=== PATIENT | female | born 1945 | race Caucasian/White ===

== ENCOUNTER → 2016-07-09 | Outpatient (CLI) | payer OTHER, BC ==
[~2016-07-09] MED LIST: AMR2 PO; CRS20 PO; EXFORGE HCT PO; GLCSR500 PO; LPRUNK PO; OXYC-57 PO; SYN125 PO
[2016-07-09 13:37] LABS: BLOOD UREA NITROGEN 19 mg/dl (7-18); BUN/CREATININE RATIO 28.8 (10-20); CALCIUM 9.3 mg/dl (8.5-10.1); CARBON DIOXIDE 24 mmol/L (21-32); CHLORIDE 105 mmol/L (98-107); CREATININE 0.67 mg/dl (0.60-1.20); GLUCOSE 142 mg/dl (70-99); POTASSIUM 3.9 mmol/L (3.5-5.1); SODIUM 141 mmol/L (136-145)
[2016-07-09 13:46] LABS: ESTIMATED AVERAGE GLUCOSE 166 mg/dl; HA1C FLAG Normal (Normal)
== END | disposition home or self-care (01) ==
LOC: C.LABMFLN 09:03
PROVIDERS: ATTEND Family Medicine
DX: E11.9 Type 2 diabetes mellitus without complications (principal)

== ENCOUNTER → 2016-12-10 | Outpatient (CLI) | payer OTHER, BC ==
[2016-12-10 13:32] LABS: ESTIMATED AVERAGE GLUCOSE 180 mg/dl; HA1C FLAG Normal (Normal)
[2016-12-10 13:35] LABS: ALT/SGPT 35 U/L (12-78); BLOOD UREA NITROGEN 18 mg/dl (7-18); BUN/CREATININE RATIO 26.7 (10-20); CALCIUM 9.8 mg/dl (8.5-10.1); CARBON DIOXIDE 24 mmol/L (21-32); CHLORIDE 106 mmol/L (98-107); CHOLESTEROL 206 mg/dl (0-200); CREATININE 0.66 mg/dl (0.60-1.20); GLUCOSE 181 mg/dl (70-99); POTASSIUM 3.8 mmol/L (3.5-5.1); SODIUM 140 mmol/L (136-145)
[2016-12-10 13:45] LABS: ALB/GLOB RATIO 1.1 (0.9-2); ALKALINE PHOSPHATASE 76 U/L (45-117); AST/SGOT 19 U/L (15-37); CHOLESTEROL/HDL RATIO 5.2; HDL CHOLESTEROL 40 mg/dl; LDL CHOLESTEROL CALCULATED 107 mg/dl; TRIGLYCERIDES 293 mg/dl (0-150); VERY LOW DENSITY LIPOPROT CALC 59 mg/dl
[2016-12-10 13:45] LABS: RATIO 39.5 mcg/mg (0-30.0)
== END | disposition home or self-care (01) ==
LOC: C.LABMFLN 08:11
PROVIDERS: ATTEND Family Medicine
DX: I10 Essential (primary) hypertension (principal); E55.9 Vitamin D deficiency, unspecified; E78.00 Pure hypercholesterolemia, unspecified; E11.9 Type 2 diabetes mellitus without complications; E03.9 Hypothyroidism, unspecified

== ENCOUNTER → 2017-04-28 | Outpatient (CLI) | payer OTHER, BC ==
[2017-04-28 13:20] LABS: ESTIMATED AVERAGE GLUCOSE 160 mg/dl; HA1C FLAG Normal (Normal)
[2017-04-28 13:33] LABS: ALT/SGPT 32 U/L (12-78); AST/SGOT 20 U/L (15-37); BLOOD UREA NITROGEN 22 mg/dl (7-18); BUN/CREATININE RATIO 34.5 (10-20); CALCIUM 9.1 mg/dl (8.5-10.1); CARBON DIOXIDE 24 mmol/L (21-32); CHLORIDE 100 mmol/L (98-107); CREATININE 0.65 mg/dl (0.60-1.20); GLUCOSE 161 mg/dl (70-99); POTASSIUM 3.6 mmol/L (3.5-5.1); SODIUM 134 mmol/L (136-145)
[2017-04-28 13:36] LABS: ALKALINE PHOSPHATASE 67 U/L (45-117); CHOLESTEROL 182 mg/dl (0-200); CHOLESTEROL/HDL RATIO 3.9; HDL CHOLESTEROL 47 mg/dl; LDL CHOLESTEROL CALCULATED 85 mg/dl; TRIGLYCERIDES 250 mg/dl (0-150); VERY LOW DENSITY LIPOPROT CALC 50 mg/dl
== END | disposition home or self-care (01) ==
LOC: C.LABMFLN 08:55
PROVIDERS: ATTEND Family Medicine
DX: E78.00 Pure hypercholesterolemia, unspecified (principal); E55.9 Vitamin D deficiency, unspecified

== ENCOUNTER → 2017-09-01 | Outpatient (CLI) | payer OTHER, BC ==
[2017-09-01 13:49] LABS: HEMOGLOBIN A1C 8.1 % (4.5-5.6)
[2017-09-01 13:54] LABS: ALBUMIN 3.7 gm/dl (3.4-5.0); ALT/SGPT 35 U/L (12-78); BLOOD UREA NITROGEN 12 mg/dl (7-18); CALCIUM 9.1 mg/dl (8.5-10.1); CARBON DIOXIDE 24 mmol/L (21-32); CREATININE 0.74 mg/dl (0.60-1.20); GLUCOSE 224 mg/dl (70-99); POTASSIUM 3.6 mmol/L (3.5-5.1); SODIUM 138 mmol/L (136-145)
[2017-09-01 14:05] LABS: ALKALINE PHOSPHATASE 81 U/L (45-117); AST/SGOT 20 U/L (15-37); CHOLESTEROL 180 mg/dl (0-200); LDL CHOLESTEROL CALCULATED 87 mg/dl; TOTAL PROTEIN 7.5 gm/dl (6.4-8.2)
== END | disposition home or self-care (01) ==
LOC: C.LABMFLN 08:29
PROVIDERS: ATTEND Family Medicine
DX: I10 Essential (primary) hypertension (principal); E03.9 Hypothyroidism, unspecified; E11.9 Type 2 diabetes mellitus without complications; E78.00 Pure hypercholesterolemia, unspecified

== ENCOUNTER → 2018-01-06 | Outpatient (CLI) | payer OTHER, BC ==
[2018-01-06 13:43] LABS: HEMOGLOBIN A1C 7.4 % (4.5-5.6)
[2018-01-06 14:15] LABS: ALBUMIN 3.7 gm/dl (3.4-5.0); ALKALINE PHOSPHATASE 72 U/L (45-117); ALT/SGPT 32 U/L (12-78); AST/SGOT 21 U/L (15-37); BLOOD UREA NITROGEN 17 mg/dl (7-18); CALCIUM 9.2 mg/dl (8.5-10.1); CARBON DIOXIDE 23 mmol/L (21-32); CHOLESTEROL 109 mg/dl (0-200); CREATININE 0.67 mg/dl (0.60-1.20); GLUCOSE 172 mg/dl (70-99); LDL CHOLESTEROL CALCULATED 37 mg/dl; POTASSIUM 3.8 mmol/L (3.5-5.1); SODIUM 136 mmol/L (136-145); TOTAL PROTEIN 7.2 gm/dl (6.4-8.2)
== END | disposition home or self-care (01) ==
LOC: C.LABMFLN 08:40
PROVIDERS: ATTEND Family Medicine
DX: I10 Essential (primary) hypertension (principal); E11.9 Type 2 diabetes mellitus without complications; R07.89 Other chest pain; E55.9 Vitamin D deficiency, unspecified

== ENCOUNTER → 2018-01-09 | Outpatient (CLI) | payer OTHER, BC | END | disposition home or self-care (01) | LOC: C.LABMFLN 10:26 | PROVIDERS: ATTEND Family Medicine | DX: M79.674 Pain in right toe(s) (principal) ==

== ENCOUNTER 2018-08-24 06:54 | Inpatient (IN) ==
--- NOTE | 2018-08-14 15:31 | PAT Medication Instructions ---
Medication Instructions Date of Service August 14, 2018 Home Medications mspruztmqd-sbtumccnm-zijyzmoca 1 tab PO QAM cholecalciferol (vitamin D3) 1,000 unit PO DAILY glimepiride 4 mg PO BID latanoprost 1 drp OPHTHALMIC (EYE) QPM levothyroxine 112 mcg PO QAM metformin 1,000 mg PO BID metoprolol tartrate 75 mg PO BID rosuvastatin [Crestor] 20 mg PO HS sitagliptin-metformin [Mayumet] 1 tab PO BID DO NOT take the morning of surgery exkirafsum-qyunmjnby-vjtpjzdzl 1 tab PO QAM cholecalciferol (vitamin D3) 1,000 unit PO DAILY glimepiride 4 mg PO BID metformin 1,000 mg PO BID sitagliptin-metformin [Mayumet] 1 tab PO BID Take morning of surgery With a small sip of water, OTHERWISE NOTHING TO EAT OR DRINK AFTER MIDNIGHT: levothyroxine 112 mcg PO QAM metoprolol tartrate 75 mg PO BID Take evening before surgery glimepiride 4 mg PO BID latanoprost 1 drp OPHTHALMIC (EYE) QPM metformin 1,000 mg PO BID metoprolol tartrate 75 mg PO BID rosuvastatin [Crestor] 20 mg PO HS sitagliptin-metformin [Mayumet] 1 tab PO BID Other Notes If you have any questions please call us at [phone] or [phone] or [phone] or [phone]
--- NOTE | 2018-08-17 11:12 | Anesthesiology Consultation ---
Date of Service August 17, 2018 Assessment & Plan (1) Encounter for pre-operative examination: - Check BSG AM DOS Chart Review Chart Review: Acceptable Risk for Surgery and Patient seen in Pre Admission Testing Teaching & Discussion Pre-Anesthesia Teaching/Discussion Notes: Instructed NPO after midnight before surgery,except medications with 15 cc of water. Medication instructions provided according to the PAT guidelines. History Surgery Operation Date: 08/24/18 08:15 Proposed Procedures p Right Hand Assisted Laparoscopic Nephrectomy - Larry Mei MD Height/Weight Height: 5 ft 1.5 in Weight: 78.3 kg Allergies Allergy/AdvReac Type Severity Reaction Status Date / Time No Known Allergies Allergy Verified 08/14/18 13:39 Medications Home Medications Medication Instructions Recorded Confirmed Last Taken zpouwhpfrw-xuolcgiip-uvxrgqpcw 1 tab PO QAM 08/14/18 08/14/18 Unknown cholecalciferol (vitamin D3) 1,000 unit PO DAILY 08/14/18 08/14/18 Unknown [Vitamin D3] glimepiride 4 mg PO BID 08/14/18 08/14/18 Unknown latanoprost 1 drp OPHTHALMIC (EYE) QPM 08/14/18 08/14/18 Unknown levothyroxine 112 mcg PO QAM 08/14/18 08/14/18 Unknown metformin 1,000 mg PO BID 08/14/18 08/14/18 Unknown metoprolol tartrate 75 mg PO BID 08/14/18 08/14/18 Unknown rosuvastatin [Crestor] 20 mg PO HS 08/14/18 08/14/18 Unknown sitagliptin-metformin [Janumet] 1 tab PO BID 08/14/18 08/14/18 Unknown omeprazole 1 cap PO DAILY 08/17/18 08/17/18 Unknown Past Medical History Medical History Acid reflux CONTROLLED Anemia CHRONIC; HGB 10-11 RANGE PER CHART REVIEW Cancer RENAL (NEW DIAGNOSIS) WITH ?METS Diabetes mellitus, type 2 NIDDM Glaucoma Gout Hypertension Hypothyroidism Obesity Past Family History Family History Mother Family history of diabetes mellitus Past Surgical History Surgical History History of arthroscopy RIGHT KNEE History of colonoscopy History of open reduction and internal fixation (ORIF) procedure B/L ANKLE Past Anesthesia History No Hx of Anesthesia Complications and No Family Hx of Anesthesia Complications History of PONV No Motion Sickness Screening History of Motion Sickness: No Social History Smoking Status: Former smoker Smoking cigarettes per day: QUIT 30 YEARS AGO; HX <1/4 PPD X 15 YEARS Do You Dip or Chew Tobacco: No Hx Alcohol Use: Yes Alcohol type: beer, wine and hard liquor alcohol intake frequency: a few times a month Hx Substance Use: No substance use type: does not use Exercise / Class Metabolic Activity II 4-5 Yardwork/Stairs/Walk up hill Review of Systems Patient denies chest pain, shortness of breath, dyspnea on exertion, cough, wheezing, palpitations. Physical Exam Vital Signs VITALS B 164/91P P 67 TEMP 98.3 SP02 97%RA RESP 18 PHYSICAL Full neck and c-spine range of motion. Full TMJ range of motion. TMD 3 finger breaths Mallampati Score 2 Dentition: intact Lungs: clear throughout to auscultation Cardiac: regular rate and rhythm, no murmurs noted Spine: normal Carotid arteries: negative bruit Extremities: no edema Testing Electrocardiogram Date: 07/31/18 SR at 61bpm. Stress Test Date: 06/17/17 Type: exercise Negative exercise stress ECHO/EKG for ischemia at 93% MPHR. Fair exercise tolerative. EF 60-65%. Mild cLVH. Type I DD. AV sclerosis. Trace to mild AI. Other Testing Chest CT= 08/07/18= The central airways are patent. No pleural effusions. No pneumothorax. The lungs are clear. No suspicious pulmonary nodules. There is a 2.3 cm lytic lesion occupying the majority of the T6 vertebral body. This does not extend through the posterior cortex. This likely extends along the right anterior paravertebral location demonstrated by small soft tissue rind measuring 4 mm in thickness. No mediastinal or hilar lymphadenopathy. The heart is borderline enlarged. Laboratory Results Blood Type O Positive 08/17/18 11:29 Antibody Screen NEGATIVE 08/17/18 11:29 Urine Color Yellow 08/17/18 Unknown Urine Appearance Clear (Clear) 08/17/18 Unknown Urine pH 5.5 (4.5-7.5) 08/17/18 Unknown Ur Specific [place] 1.021 (1.000-1.030) 08/17/18 Unknown Urine Protein Negative (Negative) 08/17/18 Unknown Urine Glucose (UA) 1+ (Negative) H 08/17/18 Unknown Urine Ketones Trace (Negative) H 08/17/18 Unknown Urine Nitrite Negative (Negative) 08/17/18 Unknown Ur Leukocyte Esterase Negative (Negative) 08/17/18 Unknown 08/13/18 WBC 8.02 H/H 11.4/35.5 PLATELETS 315 SODIUM 137 POTASSIUM 3.7 CHLORIDE 103 CO2 25 BUN 22 CREATININE 0.87 GLUCOSE 109 PT 10.4 PTT 24.5 INR 1.0 07/13/18 HGBA1C 7.9% (surgeon made aware)
[2018-08-17 13:03] LABS: Appearance Urine Clear (Clear); Bilirubin Urine Negative (Negative); Blood Urine Negative (Negative); Color Urine Yellow; Glucose Urine UA 1+ (Negative); Ketones Urine Trace (Negative); Leukocyte Esterase Urine Negative (Negative); Nitrite Urine Negative (Negative); Protein Urine Negative (Negative); Specific Gravity Urine 1.021 (1.000-1.030); Urobilinogen Urine Negative (Negative); pH Urine 5.5 (4.5-7.5)
[~2018-08-24 06:54] MED LIST changes: +ACETAMINOPHEN 1,000 MG/100 ML VIAL IV SCH; -AMR2 PO; +CEFAZOLIN 2000MG 2,000 MG/15 ML SYR IV SCH; -CRS20 PO; -EXFORGE HCT PO; -GLCSR500 PO; -LPRUNK PO; +LR 15ML/HR IV SCH; -OXYC-57 PO; -SYN125 PO
[2018-08-24] MEDS ORDERED: ONDANSETRON INJ 2 MG/ML 2 ML VIAL IV PRN (07:11)
[2018-08-24] MEDS ORDERED: PHENYLEPHRINE 100MCG/ML 5ML SYR IV PRN (07:11)
[2018-08-24] MEDS ORDERED: ATROPINE SULFATE 0.1 MG/ML 10ML SYR IV PRN (07:11)
[2018-08-24] MEDS ORDERED: fentaNYL citrate 100 MCG/2 ML VIAL IV PRN (07:11)
[2018-08-24] MEDS ORDERED: HYDROmorphone INJ 1 MG/ML SYRINGE IV PRN ×2 (07:11→13:08)
[2018-08-24] MEDS ORDERED: ePHEDrine sulfate 50 MG/ML AMP IV PRN (07:11)
[2018-08-24] MEDS ORDERED: MIDAZOLAM HCL 1 MG/ML 2ML VIAL ONE (08:04)
[2018-08-24] MEDS ORDERED: fentaNYL citrate 100 MCG/2 ML VIAL ONE (08:05)
[2018-08-24] MEDS ORDERED: BUPIVACAINE 0.5 % 5 MG/1 ML MPF 30ML VIAL ONE (08:16)
--- NOTE | 2018-08-24 08:28 | History & Physical Bridge Note ---
Date of Service August 24, 2018 History & Physical Bridge Note I have examined the patient, reviewed the History & Physical and in the interval since the performance of the History & Physical I have noted the following changes of clinical significance: no changes noted
[2018-08-24] MEDS ORDERED: HYDROmorphone INJ 2 MG/ML SYR/VIAL ONE (09:15)
[2018-08-24] MEDS ORDERED: GLYCOPYRROLATE 0.2 MG/ML VIAL ONE (09:29)
[2018-08-24] MEDS ORDERED: ONDANSETRON INJ 2 MG/ML 2 ML VIAL ONE (09:29)
[2018-08-24] MEDS ORDERED: PHENYLEPHRINE 100MCG/ML 5ML SYR ONE (09:29)
[2018-08-24] MEDS ORDERED: ePHEDrine sulfate 50 MG/ML SYR ONE (09:29)
[2018-08-24] MEDS ORDERED: ROCURONIUM BROMIDE 10 MG/ML 5 ML VIAL ONE ×2 (09:29→11:24)
[2018-08-24] MEDS ORDERED: LIDOCAINE HCL 2% 2 ML VIAL/AMP(20MG/ML) INFIL ONE (09:29)
[2018-08-24] MEDS ORDERED: PROPOFOL IV EMULSION 10 MG/ML 20 ML VIAL IV ONE (09:29)
[2018-08-24] MEDS ORDERED: LARYING-O-JET KIT (LTA) ONE (09:29)
[2018-08-24] MEDS ORDERED: DEXAMETHASONE SOD INJ 4 MG/ML VIAL ONE (09:29)
[2018-08-24] MEDS ORDERED: NEOSTIGMINE METHYLSULFATE 5 MG/5 ML SYR ONE (09:29)
[2018-08-24] MEDS ORDERED: TISSEEL FIBRIN SEALANT 10ML TOP ONE (11:06)
--- NOTE | 2018-08-24 11:33 | Operative Report ---
Post Operative Report Pre & Post Diagnosis Operation Date: 08/24/18 09:00 Pre-Op Diagnosis: Right Renal Mass Post-Op Diagnosis: Right Renal Mass Procedure Operation Date: 08/24/18 09:00 Actual Procedures p Laparoscopic Hand Assisted Right Nephrectomy(Right) - Larry Mei MD Surgeon Larry Mei MD Bridge/Structure Inspection Team Leader ROBLES SANTOS Estimated Blood Loss 50 Findings Consistent with Post-Op Diagnosis Specimens R kidney, R retroperitoneal tissue Description of Procedure R SAUD I attest to the content of the Intraoperative Record and any orders documented therein. Any exceptions are noted below.
[2018-08-24 12:09] LABS: Basophils # (auto) 0.04 K/uL (0-0.2); Basophils % (auto) 0.3 %; Eosinophils # (auto) 0.02 K/uL (0-0.5); Eosinophils % (auto) 0.1 %; Hemoglobin 10.8 g/dL (12.0-16.0); Immature Granulocytes # (auto) 0.03 K/uL (0.00-0.02); Immature Granulocytes % (auto) 0.2 %; Lymphocytes # (auto) 1.28 K/uL (1.2-3.4); Lymphocytes % (auto) 9.3 %; Mean Corpuscular Volume 82.9 fL (80-100); Mean Platelet Volume 8.6 fL (7.4-10.4); Monocytes # (auto) 0.31 K/uL (0.11-0.59); Monocytes % (auto) 2.3 %; Neutrophils # (auto) 12.09 K/uL (1.4-6.5); Neutrophils % (auto) 87.8 %; Platelet Count 343 K/uL (130-400); RDW Coefficient of Variation 14.3 % (11.5-14.5); RDW Standard Deviation 43.1 fL (36.4-46.3); White Blood Count 13.77 K/uL (4.8-10.8)
[2018-08-24 12:11] LABS: Mean Corpuscular Hgb Conc 31.8 g/dL (32-36)
[2018-08-24] MEDS ORDERED: HydrALAZINE HCL 20 MG/ML VIAL IV ONE (12:12)
[2018-08-24] MEDS ORDERED: HydrALAZINE HCL 20 MG/ML VIAL ONE (12:14)
[2018-08-24 12:31] LABS: BUN Creatinine Ratio 14.6 (10-20); Calcium 8.8 mg/dl (8.5-10.1); Creatinine Clr Calc Pharmacy 62.8 ml/min; Est GFR (Non-African American) 81.1; Potassium 3.9 mmol/L (3.5-5.1)
[2018-08-24] MEDS ORDERED: HYDROmorphone INJ 0.5 MG/0.5 ML SYR IV PRN (13:08)
--- NOTE | 2018-08-24 13:11 | Operative Report ---
DATE OF OPERATION: 08/24/2018 PREOPERATIVE DIAGNOSIS: Right central 5 cm renal mass with suspected bony metastasis. POSTOPERATIVE DIAGNOSIS: Right central 5 cm renal mass with suspected bony metastasis. PROCEDURES: Right-sided hand-assisted laparoscopic radical nephrectomy, right retroperitoneal dissection. SURGEON: Larry Mei MD ANESTHESIOLOGIST ATTENDING: DANIELLE Juarez. Film Maker is present for direction of the camera, passage of instruments, assistance with closure of port, retraction, and gentle patient safety. ESTIMATED BLOOD LOSS: 50 mL. IV FLUIDS: 1700 mL crystalloid. SPECIMENS SENT TO PATHOLOGY: Right-sided kidney plus proximal ureter, right-sided retroperitoneal tissue. DRAINS LEFT IN PLACE: Include a Hall catheter to gravity drainage. COMPLICATIONS: None. FINDINGS: Excellent hemostasis after completion of case with no residual tissue at the level of the right retroperitoneum or renal fossa. ANESTHESIA: General anesthesia with endotracheal intubation plus local at port sites. BRIEF HISTORY: Ms. Becerra is a pleasant 73-year-old female, found to have a right suspicious central 5 cm renal mass on workup for flank and back pain. She was also found to have abnormal lesions in her spine in the vicinity of the kidney suspicious for metastasis. Please see outpatient H and P for further details. After discussion of risks and benefits of various forms of management, she is here to undergo a debulking nephrectomy to assist with her oncologic care postoperatively. Intravenous Ancef is provided for antibiotic coverage and SCDs used for DVT prophylaxis. Intravenous Tylenol was provided for perioperative analgesia as well in the preoperative context. Consent is reviewed with the patient and family prior to OR. DESCRIPTION OF PROCEDURE: The patient was properly identified and brought to the operative suite after identification of appropriate consent on the chart. General anesthesia with endotracheal intubation was initiated. The patient was prepped and draped in standard fashion for this procedure. multimedia educational specialist-out procedure was followed. A Trevino incision was made in the right lower quadrant and brought down through the subcutaneous tissues to the fascia of the external oblique. This was divided and the external oblique fibers were spread until the preperitoneal fat and peritoneum were accessed. This was divided using cold Metzenbaum scissors with DeBakey pickups with no evidence of any injury to the intra-abdominal structures on entry into the abdomen. The incision was further enlarged over the surgeon's finger and a Gelport hand port was placed. Abdomen was insufflated to 15 mmHg and the intraabdominal anatomy was surveyed. Save for some small amount of adhesions at the level of the cecum, no other worrisome anatomic variations were present. Two 12 mm ports were placed in the midclavicular line directly onto the surgeon's hand. Attention was then turned to the abdomen where the white line of Toldt was incised laterally allowing the colon and liver to be mobilized medially. The retroperitoneum was entered and the ureter was identified. This was used to allow for lateral traction on the kidney. The duodenum was visualized in its normal anatomic location overlying a palpable renal artery. This was gently kocherized using a Kitner and the harmonic scalpel as necessary. The inferior vena cava was identified and dissection was carried down on the plane of the vena cava cephalad toward the level of the hilum. A gonadal vein was encountered and felt to be somewhat in the plane of dissection and obstructive. This was therefore double clipped on the IVC side and single clipped on the specimen side and then divided using the Harmonic scalpel. Dissection was continued cephalad until a single renal artery and vein were noted. Some perihilar inflammation, mild to moderate was appreciated. The renal hilum was circumscribed using the surgeon's finger and able to be taken using a 45 mm vascular load. This dissection was continued until the entire hilar area was dissected free. After the hilum was freed, the lateral and inferior aspect of the kidney was dissected free using a Harmonic scalpel and blunt dissection. The fat cephalad to the kidney was brought down and a vascular staple load was used at the superior medial aspect of the kidney to leave the adrenal gland in situ as this was free of any gross involvement on CT scan imaging. After this was complete, the ureter was double clipped on the distal side and single clipped on the proximal side. The remaining inferior fat was divided partial with the Harmonic scalpel and then taken with a final vascular staple load. The kidney was able to be removed from the abdomen intact without the need to enlarge the hand port. This was handed off the table as a specimen of the right kidney. Attention was then turned to the surgical field where excellent hemostasis was appreciated. The inferior vena cava was well skeletonized save for at the level of the hilum were some slightly indurated tissue remained between the renal artery and vein posterior to the IVC. This was felt to possibly represent some santo tissue at the level of the hilum. Using clips, Harmonic scalpel and cautious dissection, this tissue was able to be dissected free and was sent separately as right retroperitoneal tissue. Again, excellent hemostasis was ensured at the level of the right retroperitoneum. Tisseel tissue sealant was placed over the bed of the adrenal gland, kidney and over the level of the hilum as well as the plane of the ureteral dissection. After this had set, the liver and colon were returned to their normal anatomic locations. Flexion was partially removed from the table and port sites were removed. Sponge and instrument count were noted to be correct. A 0 Vicryl suture on a UR-6 needle were used at the level of the 12 mm ports to close the fascia. Attention was then turned to the hand port where it was closed in 2 layers including a 0 Vicryl suture on the deep tissues of the abdomen and perineum and a #1 Vicryl on the fascia of the external oblique in a running fashion. Subcutaneous fat was reapproximated using interrupted 3-0 Vicryl sutures. Skin was closed at all port sites using 4-0 Monocryl and Dermabond. Anesthesia was reversed. The patient was transferred to the recovery room in stable condition. FOLLOWUP CARE: The patient will be admitted to the floor for standard postoperative management. I attest to the content of the Intraoperative Record and any orders documented therein. Any exceptions are noted below. MARC
[2018-08-24] MEDS: LACTATED RINGER'S 1,000 ML IV SCH ×2 (13:43→22:01)
[2018-08-24] MEDS ORDERED: PHARMACY GLYCEMIC MGMT CONSULT PRN (13:48)
--- NOTE | 2018-08-24 13:50 | Anesthesiology Progress Note ---
Date of Service August 24, 2018 Anesthesia Post Procedure Vital Signs Vital Signs: Temp Pulse Pulse Pulse Resp BP BP 08/24/18 13:31 16 175/77 H 08/24/18 12:50 36.7 C 69 18 171/74 H 08/24/18 12:41 68 18 164/73 H 08/24/18 12:40 68 17 08/24/18 12:36 36.3 C L 63 14 164/75 H 08/24/18 12:35 62 14 08/24/18 12:31 63 14 164/79 H 08/24/18 12:30 65 17 08/24/18 12:26 64 22 176/78 H 08/24/18 12:25 64 17 08/24/18 12:21 61 17 172/80 H 08/24/18 12:20 60 13 08/24/18 12:16 60 22 178/77 H 08/24/18 12:15 57 L 15 08/24/18 12:11 60 18 167/73 H 08/24/18 12:10 58 L 14 08/24/18 12:06 57 L 16 173/79 H 08/24/18 12:05 58 L 18 08/24/18 12:01 57 L 14 170/77 H 08/24/18 12:00 57 L 15 08/24/18 11:56 57 L 13 173/79 H 08/24/18 11:55 57 L 16 08/24/18 11:51 58 L 14 157/75 H 08/24/18 11:50 57 L 17 08/24/18 11:46 55 L 16 160/78 H 08/24/18 11:45 56 L 15 08/24/18 11:42 57 L 22 08/24/18 11:41 56 L 24 163/80 H 08/24/18 11:39 36.1 C L 57 L 59 L 17 161/78 H 161/78 H 08/24/18 07:28 36.7 C 59 L 18 155/103 H Pulse Ox 08/24/18 13:31 94 08/24/18 12:50 93 08/24/18 12:41 94 08/24/18 12:40 92 08/24/18 12:36 94 08/24/18 12:35 94 08/24/18 12:31 93 08/24/18 12:30 94 08/24/18 12:26 93 08/24/18 12:25 92 08/24/18 12:21 92 08/24/18 12:20 08/24/18 12:16 08/24/18 12:15 93 08/24/18 12:11 92 08/24/18 12:10 92 08/24/18 12:06 96 08/24/18 12:05 96 08/24/18 12:01 96 08/24/18 12:00 97 08/24/18 11:56 96 08/24/18 11:55 96 08/24/18 11:51 96 08/24/18 11:50 93 08/24/18 11:46 94 08/24/18 11:45 95 08/24/18 11:42 96 08/24/18 11:41 95 08/24/18 11:39 96 08/24/18 07:28 97 Pain Intensity Right Abdomen: Pain Intensity: 0 Back: Pain Intensity: 4 Notes Mental Status: alert / awake / arousable Patient Amnestic to Procedure: Yes Nausea / Vomiting: adequately controlled Pain: adequately controlled Airway Patency, RR, SpO2: stable & adequate BP & HR: stable & adequate Hydration State: stable & adequate Anesthetic Complications: no major complications apparent
[2018-08-24] MEDS ORDERED: FAMOTIDINE 20 MG in SYRINGE 3 ML IV SCH (14:00)
[2018-08-24] MEDS ORDERED: GLUCAGON FOR INJ 1 MG VIAL IM PRN (14:15)
[2018-08-24] MEDS ORDERED: CARBOHYDRATES FOR HYPOGLYCEMIA PO PRN (14:15)
[2018-08-24] MEDS ORDERED: GLUCOSE 40% GEL 15 GM TUBE PO PRN (14:15)
[2018-08-24] MEDS ORDERED: DEXTROSE 50% 50 ML SYRINGE IV PRN (14:15)
[2018-08-24] MEDS ORDERED: GLUCOSE 10 TABS/TUBE PO PRN (14:15)
[2018-08-24] MEDS ORDERED: LANTUS PER UNIT CHARGE SQ ONE (14:30)
--- NOTE | 2018-08-24 14:56 | Pharmacy Report ---
Glycemic Control Consultation - Date of Service August 24, 2018 - Scope Scope: Glycemic Pharmacist consulted by Alysa Sanchez on 08-24 for glycemic control and to write orders per [facility] inpatient glycemic control protocol - Objective Weight: 75.466 kg Accuchecks BSG (last 24hrs): 08/24/18 08/24/18 08/24/18 07:38 11:41 12:01 Glucose 236 H POC Glucose 169 H 210 H Laboratory Data (last 24hrs): 08/24/18 12:01 Potassium 3.9 Carbon Dioxide 28 Anion Gap 7.0 Creatinine 0.73 Est Cr Clr Drug Dosing 62.8 - Recent Pertinent Medications Outpatient Anti-diabetic Regimen: * glimepiride 4 mg bid, metformin 1000 mg bid, sitagliptin/metformin bid - will need to clarify home regimen (unclear if on both metformin and combo product) * A1c = 7.9 % 2-18-19 Risk Factors for Insulin Resistance: * Steroids: Dxm 4 iv x 1 * Recent Surgery: POD 0 * Diet: clears - Assessment & Plan Assessment & Plan: ASSESSMENT: * Patient is a 73 year old type 2 diabetic managed only on oral agents at home. Now s/p nephrectomy - received IV steroids intraop, therefore anticipate steroid induced hyperglycemia postop. Will utilize basal/bolus dosing postop PLAN FOR INPATIENT GLYCEMIC CONTROL: * Pt is maintained on oral antidiabetic agents as an outpatient * Oral agents are not recommended for inpatient use d/t drug interactions, changing PO intake, and difficulty titrating for acute hyper/hypoglycemia. ADA recommends re-initiating outpatient oral agents 1-2 days prior to discharge if/when appropriate if they were held on admission. * Will hold oral agents for admission and utilize SQ basal bolus insulin regimen which is the recommended regimen for inpatient glycemic control. * Will initiate weight based insulin dosing for insulin fabiola patient and titrate based on BSG trends. * Basal insulin * Lantus 12 units x 1 - (was conservative with dosing due to patient only starting clears/unsure of po intake at this time) * Bolus insulin - add overnight checks * NovoLog per scale ACHS or Q6hrs while NPO * Goal Range: Low 120 mg/dL - High 160 mg/dL * Correction Factor: 25 mg/dL/unit * Nutritional / Prandial insulin per carb ratio of 1 unit per 8 grams CHO consumed * Please note that the plan above was derived based on current level of insulin resistance and hospital stress. These recommendations are appropriate for inpatient admission only. Plan of care upon discharge will need to be reassessed to avoid potential outpatient hypo/hyperglycemia. Thank you.
[2018-08-24] MEDS: ACETAMINOPHEN 1,000 MG/100 ML VIAL IV SCH ×2 (16:37→23:24)
[2018-08-24] MEDS: CEFAZOLIN 2000MG 2,000 MG/15 ML SYR IV SCH (16:42)
[2018-08-24] MEDS: ONDANSETRON INJ 2 MG/ML 2 ML VIAL IV PRN (17:22)
[2018-08-24] MEDS: INSULIN ASPART 100 UNITS/ML 3 ML PEN SC SCH ×2 (18:45→21:19)
[2018-08-24] MEDS: LATANOPROST 0.005% OP SOLN 2.5 ML BTL OP SCH (21:18)
[2018-08-24] MEDS: METOPROLOL TARTRATE 25 MG TAB PO SCH (21:18)
[2018-08-24] MEDS: DOCUSATE SODIUM 100 MG CAP PO SCH (21:18)
[2018-08-24] MEDS: HEPARIN SOD 5,000 UNIT/0.5 ML VIAL SQ SCH (21:50)
[2018-08-24] MEDS: ROSUVASTATIN CALCIUM 20 MG TAB PO SCH (21:53)
[2018-08-25] MEDS: CEFAZOLIN 2000MG 2,000 MG/15 ML SYR IV SCH ×2 (00:31→07:39)
[2018-08-25] MEDS: INSULIN ASPART 100 UNITS/ML 3 ML PEN SC SCH ×6 (00:55→22:32)
[2018-08-25] MEDS: LEVOTHYROXINE SODIUM 112 MCG TABLET PO SCH (05:55)
[2018-08-25] MEDS: LACTATED RINGER'S 1,000 ML IV SCH ×3 (05:55→20:33)
[2018-08-25 06:55] LABS: Basophils # (auto) 0.01 K/uL (0-0.2); Basophils % (auto) 0.1 %; Hematocrit (blood only) 32.1 % (37-47); Hemoglobin 10.5 g/dL (12.0-16.0); Immature Granulocytes # (auto) 0.03 K/uL (0.00-0.02); Immature Granulocytes % (auto) 0.2 %; Lymphocytes % (auto) 13.2 %; Mean Corpuscular Hgb Conc 32.7 g/dL (32-36); Mean Corpuscular Volume 81.9 fL (80-100); Mean Platelet Volume 8.5 fL (7.4-10.4); Monocytes # (auto) 1.89 K/uL (0.11-0.59); Monocytes % (auto) 13.2 %; Neutrophils # (auto) 10.53 K/uL (1.4-6.5); Neutrophils % (auto) 73.3 %; Platelet Count 346 K/uL (130-400); RDW Coefficient of Variation 14.4 % (11.5-14.5); RDW Standard Deviation 42.7 fL (36.4-46.3); Red Blood Count 3.92 M/uL (4.2-5.4); White Blood Count 14.36 K/uL (4.8-10.8)
[2018-08-25 07:31] LABS: BUN Creatinine Ratio 9.7 (10-20); Creatinine Clr Calc Pharmacy 47.3 ml/min; Est GFR (African American) 66.7; Est GFR (Non-African American) 57.5; Potassium 3.5 mmol/L (3.5-5.1)
[2018-08-25] MEDS: DOCUSATE SODIUM 100 MG CAP PO SCH ×2 (07:38→20:20)
[2018-08-25] MEDS: hydroCHLOROthiazide 25 MG TAB PO SCH (07:38)
[2018-08-25] MEDS: OXYCODONE HCL IR 5 MG TAB (IMMEDIATE RELEASE) PO PRN ×2 (07:39→15:23)
[2018-08-25] MEDS: ACETAMINOPHEN 1,000 MG/100 ML VIAL IV SCH ×3 (07:39→23:54)
[2018-08-25] MEDS: AMLODIPINE BESYLATE 5 MG TAB PO SCH (07:40)
[2018-08-25] MEDS: VALSARTAN 80 MG TAB PO SCH (07:40)
[2018-08-25] MEDS: CHOLECALCIFEROL 1,000 UNITS TAB PO SCH (07:40)
[2018-08-25] MEDS: METOPROLOL TARTRATE 25 MG TAB PO SCH ×2 (07:41→20:26)
[2018-08-25] MEDS: ONDANSETRON INJ 2 MG/ML 2 ML VIAL IV PRN ×2 (07:49→15:24)
--- NOTE | 2018-08-25 08:00 | Anesthesiology Progress Note ---
Date of Service August 25, 2018 Anesthesia Post Procedure Vital Signs Vital Signs: Temp Pulse Pulse Pulse Pulse Pulse Resp 08/25/18 07:17 37.3 C 71 18 08/25/18 04:22 08/25/18 03:24 80 08/25/18 02:56 37.4 C 84 16 08/25/18 00:31 36.9 C 86 18 08/24/18 21:57 91 H 08/24/18 21:13 94 H 08/24/18 19:59 37.0 C 91 H 18 08/24/18 16:04 36.8 C 88 18 08/24/18 14:53 36.6 C 82 18 08/24/18 14:06 81 16 08/24/18 13:31 16 08/24/18 12:50 36.7 C 69 18 08/24/18 12:41 68 18 08/24/18 12:40 68 17 08/24/18 12:36 36.3 C L 63 14 08/24/18 12:35 62 14 08/24/18 12:31 63 14 08/24/18 12:30 65 17 08/24/18 12:26 64 22 08/24/18 12:25 64 17 08/24/18 12:21 61 17 08/24/18 12:20 60 13 08/24/18 12:16 60 22 08/24/18 12:15 57 L 15 08/24/18 12:11 60 18 08/24/18 12:10 58 L 14 08/24/18 12:06 57 L 16 08/24/18 12:05 58 L 18 08/24/18 12:01 57 L 14 08/24/18 12:00 57 L 15 08/24/18 11:56 57 L 13 08/24/18 11:55 57 L 16 08/24/18 11:51 58 L 14 08/24/18 11:50 57 L 17 08/24/18 11:46 55 L 16 08/24/18 11:45 56 L 15 08/24/18 11:42 57 L 22 08/24/18 11:41 56 L 24 08/24/18 11:39 36.1 C L 57 L 59 L 17 BP BP BP Pulse Ox 08/25/18 07:17 197/78 H 90 08/25/18 04:22 180/79 H 08/25/18 03:24 191/83 H 194/76 H 08/25/18 02:56 204/79 H 91 08/25/18 00:31 169/76 H 92 08/24/18 21:57 177/82 H 08/24/18 21:13 182/92 H 201/96 H 08/24/18 19:59 166/78 H 94 08/24/18 16:04 145/89 H 95 08/24/18 14:53 172/74 H 96 08/24/18 14:06 173/78 H 08/24/18 13:31 175/77 H 94 08/24/18 12:50 171/74 H 93 08/24/18 12:41 164/73 H 94 08/24/18 12:40 92 08/24/18 12:36 164/75 H 94 08/24/18 12:35 94 08/24/18 12:31 164/79 H 93 08/24/18 12:30 94 08/24/18 12:26 176/78 H 93 08/24/18 12:25 92 08/24/18 12:21 172/80 H 92 08/24/18 12:20 93 08/24/18 12:16 178/77 H 92 08/24/18 12:15 93 08/24/18 12:11 167/73 H 92 08/24/18 12:10 92 08/24/18 12:06 173/79 H 96 08/24/18 12:05 96 08/24/18 12:01 170/77 H 96 08/24/18 12:00 97 08/24/18 11:56 173/79 H 96 08/24/18 11:55 96 08/24/18 11:51 157/75 H 96 08/24/18 11:50 93 08/24/18 11:46 160/78 H 94 08/24/18 11:45 95 08/24/18 11:42 96 08/24/18 11:41 163/80 H 95 08/24/18 11:39 161/78 H 161/78 H 96 Pain Intensity Right Abdomen: Pain Intensity: 0 Back: Pain Intensity: 4 Head: Pain Intensity: 7 Notes Mental Status: alert / awake / arousable and participated in evaluation Patient Amnestic to Procedure: Yes Nausea / Vomiting: adequately controlled Pain: adequately controlled Airway Patency, RR, SpO2: stable & adequate BP & HR: stable & adequate Hydration State: stable & adequate Anesthetic Complications: no major complications apparent and Pt Satisfied with anesthetic care
[2018-08-25] MEDS: PANTOprazole 40 MG TAB PO SCH (08:38)
[2018-08-25] MEDS: HEPARIN SOD 5,000 UNIT/0.5 ML VIAL SQ SCH ×2 (08:38→20:19)
--- NOTE | 2018-08-25 08:45 | Urology Progress Note ---
Date of Service August 25, 2018 Assessment & Plan (1) Renal mass, right: A/P 73 yo female POD#1 s/p R HALN. Doing well. Advance to full liquids today. Ambulate in hallways. DC IVF this PM if taking good PO. DC steen. Findings and plan reviewed. Possible DC home tomorrow depending on progress. Subjective 73 yo female POD#1 s/p R HALN, doing well. She notes OOBTC yesterday PM, not yet this AM. Taking clears with no n/v, poor appetite. No BM yet. She notes appropriate surgical pain, using IS as instructed. Labwork and intraop events reviewed, urine clear, IVF running. HTN noted. Constitutional: no fever and no chills Eyes: no diplopia Respiratory: no hemoptysis Cardiovascular: no chest pain Gastrointestinal: + abdominal pain; no vomiting Genitourinary (Female): no hematuria Integumentary: no acne and no boil Neurologic: no paralysis and no numbness Psychiatric: no hopelessness Hematologic / Lymphatic: no coagulopathy Allergy / Immunological: no lip swelling Physical Exam Vital Signs (Past 24 Hours): Last Vital Signs Temp 37.3 C 08/25/18 07:17 Pulse 71 08/25/18 07:17 Resp 18 08/25/18 07:17 BP 197/78 H 08/25/18 07:17 Pulse Ox 90 08/25/18 07:17 Constitutional: WD/WN, vitals as above ENMT: Ears: no external ear abnormality Neck: trachea midline; no anterior neck swelling Respiratory: no respiratory distress and does not use accessory muscles Cardiovascular: Vessels: radial pulses present Gastrointestinal (Abdomen): Inspection/Auscultation: abdomen not distended Percussion/Palpation: abdomen soft; abdomen nontender inc c/d/i Musculoskeletal: Head/Neck/Chest: normocephalic and neck supple Skin: normal turgor Neurologic: CN's II-XI intact bilaterally and awake; not obtunded Psychiatric: Orientation: oriented x 3 Lymphatic: no lymphadenopathy Results & Data Laboratory Results Laboratory Results - last 48 hr 08/24/18 08/24/18 08/24/18 07:38 11:41 12:01 WBC 13.77 H RBC 4.10 L Hgb 10.8 L Hct 34.0 L MCV 82.9 MCH 26.3 MCHC 31.8 L RDW Std Deviation 43.1 RDW Coeff of Talia 14.3 Plt Count 343 MPV 8.6 Immature Gran % (Auto) 0.2 Neut % (Auto) 87.8 Lymph % (Auto) 9.3 [place] % (Auto) 2.3 Eos % (Auto) 0.1 Baso % (Auto) 0.3 Immature Gran # (Auto) 0.03 H Neut # (Auto) 12.09 H Lymph # (Auto) 1.28 [place] # (Auto) 0.31 Eos # (Auto) 0.02 Baso # (Auto) 0.04 Sodium Potassium Chloride Carbon Dioxide Anion Gap BUN Creatinine Est Cr Clr Drug Dosing Est GFR ( Amer) Est GFR (Non-Af Amer) BUN/Creatinine Ratio Glucose POC Glucose 169 H 210 H Calcium 08/24/18 08/24/18 08/24/18 12:01 17:02 20:32 WBC RBC Hgb Hct MCV MCH MCHC RDW Std Deviation RDW Coeff of Talia Plt Count MPV Immature Gran % (Auto) Neut % (Auto) Lymph % (Auto) [place] % (Auto) Eos % (Auto) Baso % (Auto) Immature Gran # (Auto) Neut # (Auto) Lymph # (Auto) [place] # (Auto) Eos # (Auto) Baso # (Auto) Sodium 138 Potassium 3.9 Chloride 103 Carbon Dioxide 28 Anion Gap 7.0 BUN 11 Creatinine 0.73 Est Cr Clr Drug Dosing 62.8 Est GFR ( Amer) 94.0 Est GFR (Non-Af Amer) 81.1 BUN/Creatinine Ratio 14.6 Glucose 236 H POC Glucose 228 H 219 H Calcium 8.8 08/25/18 08/25/18 08/25/18 00:29 04:18 06:37 WBC 14.36 H RBC 3.92 L Hgb 10.5 L Hct 32.1 L MCV 81.9 MCH 26.8 MCHC 32.7 RDW Std Deviation 42.7 RDW Coeff of Talia 14.4 Plt Count 346 MPV 8.5 Immature Gran % (Auto) 0.2 Neut % (Auto) 73.3 Lymph % (Auto) 13.2 [place] % (Auto) 13.2 Eos % (Auto) 0.0 Baso % (Auto) 0.1 Immature Gran # (Auto) 0.03 H Neut # (Auto) 10.53 H Lymph # (Auto) 1.90 [place] # (Auto) 1.89 H Eos # (Auto) 0.00 Baso # (Auto) 0.01 Sodium Potassium Chloride Carbon Dioxide Anion Gap BUN Creatinine Est Cr Clr Drug Dosing Est GFR ( Amer) Est GFR (Non-Af Amer) BUN/Creatinine Ratio Glucose POC Glucose 143 H 144 H Calcium 08/25/18 08/25/18 06:37 08:16 WBC RBC Hgb Hct MCV MCH MCHC RDW Std Deviation RDW Coeff of Talia Plt Count MPV Immature Gran % (Auto) Neut % (Auto) Lymph % (Auto) [place] % (Auto) Eos % (Auto) Baso % (Auto) Immature Gran # (Auto) Neut # (Auto) Lymph # (Auto) [place] # (Auto) Eos # (Auto) Baso # (Auto) Sodium 138 Potassium 3.5 Chloride 101 Carbon Dioxide 29 Anion Gap 8.0 BUN 9 Creatinine 0.97 Est Cr Clr Drug Dosing 47.3 Est GFR ( Amer) 66.7 Est GFR (Non-Af Amer) 57.5 BUN/Creatinine Ratio 9.7 L Glucose 136 H POC Glucose 133 H Calcium 9.0
[2018-08-25] MEDS ORDERED: [UNRECOGNIZED DRUG - OTHER] PO SCH (09:00)
--- NOTE | 2018-08-25 11:35 | Consultation ---
Date of Consultation August 25, 2018 Assessment & Plan (1) Hypertension: Patient has fairly resistant HTN at baseline with multiple office visits with BP in the 180/80 range. Hypertension likely exacerbated by fluid shifts from surgery, YESSI disruption from her nephrectomy, and pain/anxiety from surgery and being in the hospital. In light of her being largely asymptomatic from her high BP, would not try to control it too tightly in the inpatient setting. - Hydralazine PRN for SBP > 180 or DBP > 110 - Would avoid increasing valsartan or HCTZ until things have settled down after her nephrectomy (i.e. PCP can do this as outpatient). Would avoid adding spironolactone, again due to recent nephrectomy. - Could consider adding PO hydralazine, but compliance is difficult as it is a TID medication - Would probably just defer further HTN medication adjustments to PCP (2) Renal mass, right: S/p right-sided nephrectomy with Dr. Larry Mei on 08/24. Concern for renal cell carcinoma. - Surgical and oncology follow up per primary team and Dr. Castrejon (3) Diabetes mellitus, type 2: Holding home meds. - Glycemic management of DM while inpatient - If kidney function remains stable, can discharge on home oral meds on discharge (4) Hypothyroidism: No concerns for thyroid issues. - Continue home Synthroid 112 mcg (5) DVT prophylaxis: Heparin 5000 units BID per primary team Thank you for the consult. We will follow along with the patient until discharge. History of Present Illness Attending Physician: Larry Mei MD History of Present Illness 69-year-old female with a history of RCC who presents as a medical consult for hypertension status post right-sided nephrectomy with Dr. Larry Mei on 08/24. Patient was having significant pain yesterday, and her blood pressure was elevated to up to 220/80. Today she is much more comfortable from a pain standpoint; however, her blood pressure remained elevated to up to 190/70. We were consulted for significant hypertension. On interview, the patient is in no distress. She reports that her right-sided flank pain is much improved from yesterday and is minimal without movement. At the time of her high blood pressure, she reports she was having some frontal headache. However she denies any vision changes, chest pain, abdominal pain, strength or sensation changes, or any symptoms concerning for hypertensive emergency. She reports that her blood pressure has been elevated in the office setting, but that at her prior office visit it was down to 140/80. She did skip her morning medications yesterday morning in preparation for surgery at the recommendation of her PCP. Allergies Allergy/AdvReac Type Severity Reaction Status Date / Time No Known Allergies Allergy Verified 08/24/18 07:18 Home Medications Home Medications Medication Instructions Recorded Confirmed Type [id number] 1 tab PO QAM 08/14/18 08/24/18 History cholecalciferol (vitamin D3) 1,000 unit PO DAILY 08/14/18 08/24/18 History [Vitamin D3] glimepiride 4 mg PO BID 08/14/18 08/24/18 History latanoprost 1 drp OPHTHALMIC (EYE) QPM 08/14/18 08/24/18 History levothyroxine 112 mcg PO QAM 08/14/18 08/24/18 History metformin 1,000 mg PO BID 08/14/18 08/24/18 History metoprolol tartrate 75 mg PO BID 08/14/18 08/24/18 History rosuvastatin [Crestor] 20 mg PO HS 08/14/18 08/24/18 History sitagliptin-metformin [Janumet] 1 tab PO BID 08/14/18 08/24/18 History omeprazole 1 cap PO DAILY 08/17/18 08/24/18 History Patient History Medical History Cancer RENAL (NEW DIAGNOSIS) WITH ?METS Diabetes mellitus, type 2 NIDDM Glaucoma Gout Hypertension Hypothyroidism Acid reflux CONTROLLED Anemia CHRONIC; HGB 10-11 RANGE PER CHART REVIEW Obesity Surgical History History of arthroscopy RIGHT KNEE History of colonoscopy History of open reduction and internal fixation (ORIF) procedure B/L ANKLE Family History Mother Family history of diabetes mellitus Social History Preferred Language: Maltese Communication Ability: Effective Chinese Herbalist Required: No Beliefs That Will Affect Care: None Current Living Situation: Alone Other Information That Helps Us Care for You: No Feels Safe at Home: Yes Safety Concerns: Feels Safe At This Time Smoking Status: Former smoker Hx Alcohol Use: Yes Hx Substance Use: No Review of Systems Constitutional: no fever, no chills and no sweats Eyes: no diplopia Ear, Nose, Mouth, Throat: no ear trauma, no nasal discharge and no dental pain Respiratory: no cough, no chest congestion and no dyspnea Cardiovascular: no chest pain, no dyspnea on exertion, no palpitations and no syncope Gastrointestinal: no abdominal pain, no belching, no constipation, no diarrhea/loose stools, no blood in stools and no melena Musculoskeletal: no back pain, no joint pain and no muscle weakness Integumentary: no rash, no skin ulcer and no erythema Neurologic: + headache(s); no generalized weakness, no loss of sensation, no numbness and no paresthesia Psychiatric: no depression and no anxiety Endocrine: no fatigue, no polydipsia and no polyphagia Physical Exam Vital Signs (Past 24 Hours): Last Vital Signs Temp 37.3 C 08/25/18 07:17 Pulse 71 08/25/18 07:17 Resp 18 08/25/18 07:17 BP 197/78 H 08/25/18 07:17 Pulse Ox 90 08/25/18 07:17 Constitutional: WD/WN, vitals as above Eyes: EOM intact bilaterally; no conjunctival abnormality ENMT: external ear and nose normal, oropharynx normal Neck: trachea midline, no thyromegaly normal visual inspection Respiratory: normal respiratory effort, lungs clear to auscultation no respiratory distress Cardiovascular: RRR, no murmur, no edema Gastrointestinal (Abdomen): Inspection/Auscultation: abdomen normal to inspection; abdomen not distended Musculoskeletal: no cyanosis or clubbing, extremities motor strength 5/5 Skin: no rashes, warm and dry Neurologic: moves all extremities and awake Psychiatric: Orientation: alert, oriented to person and cooperative
[2018-08-25] MEDS: HydrALAZINE HCL 20 MG/ML VIAL IV PRN ×2 (12:09→21:25)
[2018-08-25] MEDS: ROSUVASTATIN CALCIUM 20 MG TAB PO SCH (20:20)
[2018-08-25] MEDS: LATANOPROST 0.005% OP SOLN 2.5 ML BTL OP SCH (20:21)
[2018-08-26] MEDS: HydrALAZINE HCL 20 MG/ML VIAL IV PRN ×2 (01:37→07:43)
[2018-08-26] MEDS: OXYCODONE HCL IR 5 MG TAB (IMMEDIATE RELEASE) PO PRN (05:13)
[2018-08-26] MEDS: LEVOTHYROXINE SODIUM 112 MCG TABLET PO SCH (05:15)
[2018-08-26 07:36] LABS: Basophils # (auto) 0.01 K/uL (0-0.2); Basophils % (auto) 0.1 %; Eosinophils # (auto) 0.02 K/uL (0-0.5); Eosinophils % (auto) 0.2 %; Hematocrit (blood only) 34.3 % (37-47); Hemoglobin 11.2 g/dL (12.0-16.0); Immature Granulocytes # (auto) 0.05 K/uL (0.00-0.02); Immature Granulocytes % (auto) 0.4 %; Lymphocytes # (auto) 1.79 K/uL (1.2-3.4); Lymphocytes % (auto) 13.7 %; Mean Corpuscular Hgb Conc 32.7 g/dL (32-36); Mean Corpuscular Volume 82.1 fL (80-100); Mean Platelet Volume 8.7 fL (7.4-10.4); Monocytes # (auto) 1.45 K/uL (0.11-0.59); Monocytes % (auto) 11.1 %; Neutrophils # (auto) 9.79 K/uL (1.4-6.5); Neutrophils % (auto) 74.5 %; Platelet Count 360 K/uL (130-400); RDW Coefficient of Variation 14.7 % (11.5-14.5); RDW Standard Deviation 43.5 fL (36.4-46.3); Red Blood Count 4.18 M/uL (4.2-5.4); White Blood Count 13.11 K/uL (4.8-10.8)
[2018-08-26 07:57] LABS: BUN Creatinine Ratio 10.2 (10-20); Calcium 9.4 mg/dl (8.5-10.1); Creatinine Clr Calc Pharmacy 50.4 ml/min; Est GFR (Non-African American) 62.2; Potassium 3.1 mmol/L (3.5-5.1)
[2018-08-26] MEDS: CHOLECALCIFEROL 1,000 UNITS TAB PO SCH (08:23)
[2018-08-26] MEDS: AMLODIPINE BESYLATE 5 MG TAB PO SCH (08:23)
[2018-08-26] MEDS: VALSARTAN 80 MG TAB PO SCH (08:24)
[2018-08-26] MEDS: PANTOprazole 40 MG TAB PO SCH (08:24)
[2018-08-26] MEDS: DOCUSATE SODIUM 100 MG CAP PO SCH ×2 (08:25→21:07)
[2018-08-26] MEDS: hydroCHLOROthiazide 25 MG TAB PO SCH (08:26)
[2018-08-26] MEDS: METOPROLOL TARTRATE 25 MG TAB PO SCH ×2 (08:26→21:13)
[2018-08-26] MEDS: ACETAMINOPHEN 1,000 MG/100 ML VIAL IV SCH ×2 (08:27→16:39)
[2018-08-26] MEDS: HEPARIN SOD 5,000 UNIT/0.5 ML VIAL SQ SCH ×2 (08:27→21:06)
[2018-08-26] MEDS: INSULIN ASPART 100 UNITS/ML 3 ML PEN SC SCH ×4 (08:36→21:37)
[2018-08-26] MEDS ORDERED: BISACODYL 10 MG SUPP PR STA (08:41)
--- NOTE | 2018-08-26 08:45 | Urology Progress Note ---
Date of Service August 26, 2018 Assessment & Plan (1) Renal mass, right: A/P 73 yo female POD#2 s/p R HALN. GI function seems to possibly be improving. Good appetite - will provide a trial of soft mechanical diet today. Ambulate in halls, may shower. Continue pain regimen. If still requiring parenteral meds anticipate DC home tomorrow. We are pleased with stable Cr still wnl, stable labs. Care d/w patient who vocalizes understanding of the treatment plan. Subjective 73 yo female POD#2 s/p R HALN. She had a couple of episodes of emesis yesterday, feeling improved now. Ambulating in halls, PT evaluation, no BMs yet, minimal flatus. + appetite, pain controlled with IV meds, incisional and appropriate postop. Labwork and events since yesterday noted. Constitutional: no fever and no chills Ear, Nose, Mouth, Throat: no ear trauma Respiratory: no hemoptysis Cardiovascular: no chest pain Gastrointestinal: + abdominal pain and + vomiting; no diarrhea/loose stools Genitourinary (Female): no hematuria Integumentary: no acne and no boil Neurologic: no paralysis and no numbness Psychiatric: no hopelessness Physical Exam Vital Signs (Past 24 Hours): Last Vital Signs Temp 37.0 C 08/26/18 07:53 Pulse 64 08/26/18 07:53 Resp 15 08/26/18 07:53 BP 183/82 H 08/26/18 07:53 Pulse Ox 94 08/26/18 07:53 Constitutional: WD/WN, vitals as above ENMT: Ears: no external ear abnormality Neck: trachea midline; no anterior neck swelling Respiratory: no respiratory distress and does not use accessory muscles Cardiovascular: Vessels: radial pulses present Gastrointestinal (Abdomen): Inspection/Auscultation: abdomen not distended Percussion/Palpation: abdomen soft; abdomen nontender inc c/d/i Musculoskeletal: Head/Neck/Chest: normocephalic and neck supple Skin: normal turgor Neurologic: CN's II-XI intact bilaterally and awake; not obtunded Psychiatric: Orientation: oriented x 3 Lymphatic: no lymphadenopathy Results & Data Laboratory Results Laboratory Results - last 48 hr 08/24/18 08/24/18 08/24/18 11:41 12:01 12:01 WBC 13.77 H RBC 4.10 L Hgb 10.8 L Hct 34.0 L MCV 82.9 MCH 26.3 MCHC 31.8 L RDW Std Deviation 43.1 RDW Coeff of Talia 14.3 Plt Count 343 MPV 8.6 Immature Gran % (Auto) 0.2 Neut % (Auto) 87.8 Lymph % (Auto) 9.3 [place] % (Auto) 2.3 Eos % (Auto) 0.1 Baso % (Auto) 0.3 Immature Gran # (Auto) 0.03 H Neut # (Auto) 12.09 H Lymph # (Auto) 1.28 [place] # (Auto) 0.31 Eos # (Auto) 0.02 Baso # (Auto) 0.04 Sodium 138 Potassium 3.9 Chloride 103 Carbon Dioxide 28 Anion Gap 7.0 BUN 11 Creatinine 0.73 Est Cr Clr Drug Dosing 62.8 Est GFR ( Amer) 94.0 Est GFR (Non-Af Amer) 81.1 BUN/Creatinine Ratio 14.6 Glucose 236 H POC Glucose 210 H Calcium 8.8 08/24/18 08/24/18 08/25/18 17:02 20:32 00:29 WBC RBC Hgb Hct MCV MCH MCHC RDW Std Deviation RDW Coeff of Talia Plt Count MPV Immature Gran % (Auto) Neut % (Auto) Lymph % (Auto) [place] % (Auto) Eos % (Auto) Baso % (Auto) Immature Gran # (Auto) Neut # (Auto) Lymph # (Auto) [place] # (Auto) Eos # (Auto) Baso # (Auto) Sodium Potassium Chloride Carbon Dioxide Anion Gap BUN Creatinine Est Cr Clr Drug Dosing Est GFR ( Amer) Est GFR (Non-Af Amer) BUN/Creatinine Ratio Glucose POC Glucose 228 H 219 H 143 H Calcium 08/25/18 08/25/18 08/25/18 04:18 06:37 06:37 WBC 14.36 H RBC 3.92 L Hgb 10.5 L Hct 32.1 L MCV 81.9 MCH 26.8 MCHC 32.7 RDW Std Deviation 42.7 RDW Coeff of Talia 14.4 Plt Count 346 MPV 8.5 Immature Gran % (Auto) 0.2 Neut % (Auto) 73.3 Lymph % (Auto) 13.2 [place] % (Auto) 13.2 Eos % (Auto) 0.0 Baso % (Auto) 0.1 Immature Gran # (Auto) 0.03 H Neut # (Auto) 10.53 H Lymph # (Auto) 1.90 [place] # (Auto) 1.89 H Eos # (Auto) 0.00 Baso # (Auto) 0.01 Sodium 138 Potassium 3.5 Chloride 101 Carbon Dioxide 29 Anion Gap 8.0 BUN 9 Creatinine 0.97 Est Cr Clr Drug Dosing 47.3 Est GFR ( Amer) 66.7 Est GFR (Non-Af Amer) 57.5 BUN/Creatinine Ratio 9.7 L Glucose 136 H POC Glucose 144 H Calcium 9.0 08/25/18 08/25/18 08/25/18 08:16 12:11 17:06 WBC RBC Hgb Hct MCV MCH MCHC RDW Std Deviation RDW Coeff of Talia Plt Count MPV Immature Gran % (Auto) Neut % (Auto) Lymph % (Auto) [place] % (Auto) Eos % (Auto) Baso % (Auto) Immature Gran # (Auto) Neut # (Auto) Lymph # (Auto) [place] # (Auto) Eos # (Auto) Baso # (Auto) Sodium Potassium Chloride Carbon Dioxide Anion Gap BUN Creatinine Est Cr Clr Drug Dosing Est GFR ( Amer) Est GFR (Non-Af Amer) BUN/Creatinine Ratio Glucose POC Glucose 133 H 197 H 167 H Calcium 08/25/18 08/25/18 08/26/18 21:20 22:28 07:16 WBC 13.11 H RBC 4.18 L Hgb 11.2 L Hct 34.3 L MCV 82.1 MCH 26.8 MCHC 32.7 RDW Std Deviation 43.5 RDW Coeff of Talia 14.7 H Plt Count 360 MPV 8.7 Immature Gran % (Auto) 0.4 Neut % (Auto) 74.5 Lymph % (Auto) 13.7 [place] % (Auto) 11.1 Eos % (Auto) 0.2 Baso % (Auto) 0.1 Immature Gran # (Auto) 0.05 H Neut # (Auto) 9.79 H Lymph # (Auto) 1.79 [place] # (Auto) 1.45 H Eos # (Auto) 0.02 Baso # (Auto) 0.01 Sodium Potassium Chloride Carbon Dioxide Anion Gap BUN Creatinine Est Cr Clr Drug Dosing Est GFR ( Amer) Est GFR (Non-Af Amer) BUN/Creatinine Ratio Glucose POC Glucose 173 H 148 H Calcium 08/26/18 08/26/18 07:16 08:14 WBC RBC Hgb Hct MCV MCH MCHC RDW Std Deviation RDW Coeff of Talia Plt Count MPV Immature Gran % (Auto) Neut % (Auto) Lymph % (Auto) [place] % (Auto) Eos % (Auto) Baso % (Auto) Immature Gran # (Auto) Neut # (Auto) Lymph # (Auto) [place] # (Auto) Eos # (Auto) Baso # (Auto) Sodium 137 Potassium 3.1 L Chloride 100 Carbon Dioxide 27 Anion Gap 10.0 BUN 9 Creatinine 0.91 Est Cr Clr Drug Dosing 50.4 Est GFR ( Amer) 72.0 Est GFR (Non-Af Amer) 62.2 BUN/Creatinine Ratio 10.2 Glucose 148 H POC Glucose 151 H Calcium 9.4
--- NOTE | 2018-08-26 09:54 | Pharmacy Report ---
Pharmacy Glycemic Short Note 2 - Date of Service August 26, 2018 - Glycemic Short BSG Results (Last 24 hours): 08/25/18 08/25/18 08/25/18 12:11 17:06 21:20 Glucose POC Glucose 197 H 167 H 173 H 08/25/18 08/26/18 08/26/18 22:28 07:16 08:14 Glucose 148 H POC Glucose 148 H 151 H ASSESSMENT: * Patient is a 73 year old type 2 diabetic managed only on oral agents at home. Now s/p nephrectomy - received IV steroids intraop, therefore anticipate steroid induced hyperglycemia postop. Will utilize basal/bolus dosing postop 08/26: * Patient received total of 18 units of insulin yesterday - BSGs trending down as steroids have likely worn off * Fasting BSG this am slightly elevated at 148 mg/dL - patient's diet continues to advance more today; Will continue to trend BSGs, if fasting continues to be >160 mg/dL could consider some basal insulin. Will hold for today as anticipate BSGs to improve. * BSGs yesterday 197-167-148 mg/dL -lunchtime trending up will tighten CR PLAN FOR INPATIENT GLYCEMIC CONTROL: * Pt is maintained on oral antidiabetic agents as an outpatient * Oral agents are not recommended for inpatient use d/t drug interactions, changing PO intake, and difficulty titrating for acute hyper/hypoglycemia. ADA recommends re-initiating outpatient oral agents 1-2 days prior to discharge if/when appropriate if they were held on admission. * Will hold oral agents for admission and utilize SQ basal bolus insulin regimen which is the recommended regimen for inpatient glycemic control. * Will initiate weight based insulin dosing for insulin fabiola patient and titrate based on BSG trends. * Basal insulin * Lantus - add scale for tonight based upon BSG * Bolus insulin - tighten * NovoLog per scale ACHS or Q6hrs while NPO * Goal Range: Low 120 mg/dL - High 160 mg/dL * Correction Factor: 25 mg/dL/unit * Nutritional / Prandial insulin per carb ratio of 1 unit per 7 grams CHO consumed PLAN FOR DISCHARGE: * Patient reports taking both metformin 1000 mg bid and also sitagliptan/metformin bid (this is above daily max for metformin dosing) - followed up with her PCP and there seems to be confusion on what she is taking. Per Urmila from PCP's office their last note indicated she should be on only metformin and glimepiride. Would recommend continuation of only these two agents on discharge until clarification from PCP's office post discharge. She does have appt 09/01 with PCP.
--- NOTE | 2018-08-26 13:06 | Hospitalist Progress Note ---
Date of Service August 26, 2018 Assessment & Plan (1) Hypertension: - Rather resistant HTN at baseline but given renal mass it is possible she truly has a secondary HTN cause due affects of renin-angiotension system; currently this is likely multifactorial between constipation/pain/anxiety/stress - She remains asymptomatic from her BP and will monitor; would not get too aggressive with blood pressure control in the acute setting - Can continue her home medications of Amlodipine 10 mg daily, HCTZ 12.5 mg daily, and Valsartan 160 mg daily (normally combined at home); Metoprolol 75 mg BID; Hydralazine PRN - Currently would not increase diuretic or ARB given recent renal procedure; average pulse is 60-70 so would avoid increasing BB therapy; Amlodipine is at max dose - Ultimately she should have routine F/U with her PCP to monitor her BP as she may not require the same level of medications going forwards if some of the resistance of her BP is coming from a secondary cause that is now removed Present on Admission?: Yes (2) Renal mass, right: - S/P right-sided nephrectomy with Dr. Larry Mei on 08/24. Concern for renal cell carcinoma. - Maintain good bowel regimen - did have Dulcolax and Colace; Could add Senna if this measure does not work and will monitor - Surgical and oncology follow up per primary team and Dr. Castrejon Present on Admission?: Yes (3) Diabetes mellitus, type 2: - Holding home meds. - Glycemic management of DM while inpatient - If kidney function remains stable, can discharge on home oral meds on discharge Present on Admission?: Yes (4) Hypothyroidism: - STABLE - Continue home Synthroid 112 mcg Present on Admission?: Yes (5) DVT prophylaxis: - Heparin 5000 units BID per primary team Thank you for the consult. We will follow along with the patient until discharge. Subjective Reports feeling well today. Reporting pain is doing better but having some ongoing R shoulder pain likely from inflation but is doing better States she is tolerating the diet but the soups are just too salty for her liking. Had a long conversation about her blood pressure and the kidney role this could be playing. As well, the importance of close BP F/U as outpatient as her medication needs may change if this was a secondary HTN cause. Constitutional: no fever and no chills Eyes: no worsening vision Ear, Nose, Mouth, Throat: no sore throat and no dysphagia Respiratory: no cough and no dyspnea Cardiovascular: no chest pain and no palpitations Gastrointestinal: + constipation; no abdominal pain, no nausea, no vomiting and no diarrhea/loose stools Genitourinary (Female): no dysuria Musculoskeletal: + joint pain (R shoulder) Integumentary: no rash Neurologic: no gait abnormality and no unsteadiness Physical Exam Vital Signs (Past 24 Hours): Last Vital Signs Temp 37.0 C 08/26/18 11:40 Pulse 72 08/26/18 11:40 Resp 15 08/26/18 11:40 BP 143/79 H 08/26/18 11:40 Pulse Ox 94 08/26/18 11:40 Constitutional: WD/WN, vitals as above Eyes: + anicteric sclerae ENMT: Ears: no hearing impairment Neck: normal visual inspection and trachea midline Respiratory: normal respiratory effort, lungs clear to auscultation no respiratory distress Cardiovascular: RRR, no murmur, no edema Gastrointestinal (Abdomen): Inspection/Auscultation: abdomen normal to inspection; abdomen not distended Musculoskeletal: Head/Neck/Chest: normocephalic, head atraumatic and neck supple Extremities: no cyanosis and no clubbing Gait: normal gait Skin: no rashes, warm and dry Neurologic: moves all extremities and awake Psychiatric: Orientation: alert, oriented to person and cooperative
[2018-08-26] MEDS ORDERED: LANTUS PER UNIT CHARGE SQ SCH (21:00)
[2018-08-26] MEDS: LATANOPROST 0.005% OP SOLN 2.5 ML BTL OP SCH (21:06)
[2018-08-26] MEDS: ROSUVASTATIN CALCIUM 20 MG TAB PO SCH (21:06)
[2018-08-27] MEDS ORDERED: INSULIN ASPART 100 UNITS/ML 3 ML PEN SC SCH
[2018-08-27] MEDS: ACETAMINOPHEN 1,000 MG/100 ML VIAL IV SCH ×2 (00:22→08:41)
[2018-08-27] MEDS: LEVOTHYROXINE SODIUM 112 MCG TABLET PO SCH (05:47)
[2018-08-27 06:44] LABS: Basophils # (auto) 0.03 K/uL (0-0.2); Basophils % (auto) 0.3 %; Eosinophils # (auto) 0.21 K/uL (0-0.5); Hematocrit (blood only) 32.1 % (37-47); Hemoglobin 10.4 g/dL (12.0-16.0); Immature Granulocytes # (auto) 0.03 K/uL (0.00-0.02); Immature Granulocytes % (auto) 0.3 %; Lymphocytes # (auto) 2.31 K/uL (1.2-3.4); Lymphocytes % (auto) 21.6 %; Mean Corpuscular Hgb Conc 32.4 g/dL (32-36); Mean Corpuscular Volume 82.7 fL (80-100); Mean Platelet Volume 8.8 fL (7.4-10.4); Monocytes # (auto) 1.11 K/uL (0.11-0.59); Monocytes % (auto) 10.4 %; Neutrophils # (auto) 7.01 K/uL (1.4-6.5); Neutrophils % (auto) 65.4 %; Platelet Count 348 K/uL (130-400); RDW Coefficient of Variation 14.7 % (11.5-14.5); RDW Standard Deviation 43.9 fL (36.4-46.3); Red Blood Count 3.88 M/uL (4.2-5.4)
[2018-08-27 07:07] LABS: BUN Creatinine Ratio 15.6 (10-20); Calcium 9.4 mg/dl (8.5-10.1); Creatinine Clr Calc Pharmacy 43.7 ml/min; Est GFR (African American) 60.6; Est GFR (Non-African American) 52.3; Potassium 3.1 mmol/L (3.5-5.1)
[2018-08-27] MEDS: HydrALAZINE HCL 20 MG/ML VIAL IV PRN (07:34)
--- NOTE | 2018-08-27 08:24 | Urology Progress Note ---
Date of Service August 27, 2018 Assessment & Plan (1) Renal mass, right: A/P 73 yo female POD#3 s/p R HALN. Doing well. DC instructions reviewed. Regular diet. Likely DC home this PM - patient amenable. Subjective 73 yo female POD#3 s/p R HALN. She has had a BM and flatus, taking regular diet, ambulatory, feels much improved, in good spirits. No new worrisome events. Constitutional: no fever and no chills Respiratory: no hemoptysis Cardiovascular: no chest pain Gastrointestinal: no nausea and no vomiting Integumentary: no acne and no boil Neurologic: no paralysis and no numbness Psychiatric: no hopelessness Physical Exam Vital Signs (Past 24 Hours): Last Vital Signs Temp 36.8 C 08/27/18 07:29 Pulse 78 08/27/18 07:29 Resp 16 08/27/18 07:29 BP 206/90 H 08/27/18 07:29 Pulse Ox 95 08/27/18 07:29 Constitutional: WD/WN, vitals as above ENMT: Ears: no external ear abnormality Neck: trachea midline; no anterior neck swelling Respiratory: no respiratory distress and does not use accessory muscles Cardiovascular: Vessels: radial pulses present Gastrointestinal (Abdomen): Inspection/Auscultation: abdomen not distended Percussion/Palpation: abdomen soft; abdomen nontender Musculoskeletal: Head/Neck/Chest: normocephalic and neck supple Skin: normal turgor Neurologic: CN's II-XI intact bilaterally and awake; not obtunded Psychiatric: Orientation: oriented x 3 Lymphatic: no lymphadenopathy Results & Data Laboratory Results Laboratory Results - last 48 hr 08/25/18 08/25/18 08/25/18 12:11 17:06 21:20 WBC RBC Hgb Hct MCV MCH MCHC RDW Std Deviation RDW Coeff of Talia Plt Count MPV Immature Gran % (Auto) Neut % (Auto) Lymph % (Auto) [place] % (Auto) Eos % (Auto) Baso % (Auto) Immature Gran # (Auto) Neut # (Auto) Lymph # (Auto) [place] # (Auto) Eos # (Auto) Baso # (Auto) Sodium Potassium Chloride Carbon Dioxide Anion Gap BUN Creatinine Est Cr Clr Drug Dosing Est GFR ( Amer) Est GFR (Non-Af Amer) BUN/Creatinine Ratio Glucose POC Glucose 197 H 167 H 173 H Calcium 08/25/18 08/26/18 08/26/18 22:28 07:16 07:16 WBC 13.11 H RBC 4.18 L Hgb 11.2 L Hct 34.3 L MCV 82.1 MCH 26.8 MCHC 32.7 RDW Std Deviation 43.5 RDW Coeff of Talia 14.7 H Plt Count 360 MPV 8.7 Immature Gran % (Auto) 0.4 Neut % (Auto) 74.5 Lymph % (Auto) 13.7 [place] % (Auto) 11.1 Eos % (Auto) 0.2 Baso % (Auto) 0.1 Immature Gran # (Auto) 0.05 H Neut # (Auto) 9.79 H Lymph # (Auto) 1.79 [place] # (Auto) 1.45 H Eos # (Auto) 0.02 Baso # (Auto) 0.01 Sodium 137 Potassium 3.1 L Chloride 100 Carbon Dioxide 27 Anion Gap 10.0 BUN 9 Creatinine 0.91 Est Cr Clr Drug Dosing 50.4 Est GFR ( Amer) 72.0 Est GFR (Non-Af Amer) 62.2 BUN/Creatinine Ratio 10.2 Glucose 148 H POC Glucose 148 H Calcium 9.4 08/26/18 08/26/18 08/26/18 08:14 12:30 16:56 WBC RBC Hgb Hct MCV MCH MCHC RDW Std Deviation RDW Coeff of Talia Plt Count MPV Immature Gran % (Auto) Neut % (Auto) Lymph % (Auto) [place] % (Auto) Eos % (Auto) Baso % (Auto) Immature Gran # (Auto) Neut # (Auto) Lymph # (Auto) [place] # (Auto) Eos # (Auto) Baso # (Auto) Sodium Potassium Chloride Carbon Dioxide Anion Gap BUN Creatinine Est Cr Clr Drug Dosing Est GFR ( Amer) Est GFR (Non-Af Amer) BUN/Creatinine Ratio Glucose POC Glucose 151 H 236 H 133 H Calcium 08/26/18 08/27/18 08/27/18 21:12 00:26 06:30 WBC 10.70 RBC 3.88 L Hgb 10.4 L Hct 32.1 L MCV 82.7 MCH 26.8 MCHC 32.4 RDW Std Deviation 43.9 RDW Coeff of Talia 14.7 H Plt Count 348 MPV 8.8 Immature Gran % (Auto) 0.3 Neut % (Auto) 65.4 Lymph % (Auto) 21.6 [place] % (Auto) 10.4 Eos % (Auto) 2.0 Baso % (Auto) 0.3 Immature Gran # (Auto) 0.03 H Neut # (Auto) 7.01 H Lymph # (Auto) 2.31 [place] # (Auto) 1.11 H Eos # (Auto) 0.21 Baso # (Auto) 0.03 Sodium Potassium Chloride Carbon Dioxide Anion Gap BUN Creatinine Est Cr Clr Drug Dosing Est GFR ( Amer) Est GFR (Non-Af Amer) BUN/Creatinine Ratio Glucose POC Glucose 134 H 127 H Calcium 08/27/18 08/27/18 06:30 08:12 WBC RBC Hgb Hct MCV MCH MCHC RDW Std Deviation RDW Coeff of Talia Plt Count MPV Immature Gran % (Auto) Neut % (Auto) Lymph % (Auto) [place] % (Auto) Eos % (Auto) Baso % (Auto) Immature Gran # (Auto) Neut # (Auto) Lymph # (Auto) [place] # (Auto) Eos # (Auto) Baso # (Auto) Sodium 137 Potassium 3.1 L Chloride 102 Carbon Dioxide 31 Anion Gap 5.0 BUN 16 D Creatinine 1.05 Est Cr Clr Drug Dosing 43.7 Est GFR ( Amer) 60.6 Est GFR (Non-Af Amer) 52.3 BUN/Creatinine Ratio 15.6 Glucose 141 H POC Glucose 214 H Calcium 9.4
[2018-08-27] MEDS ORDERED: POTASSIUM CHLORIDE 20 MEQ TABCR PO ONE (08:30)
[2018-08-27] MEDS: METOPROLOL TARTRATE 25 MG TAB PO SCH (08:41)
[2018-08-27] MEDS: CHOLECALCIFEROL 1,000 UNITS TAB PO SCH (08:41)
[2018-08-27] MEDS: PANTOprazole 40 MG TAB PO SCH (08:41)
[2018-08-27] MEDS: AMLODIPINE BESYLATE 5 MG TAB PO SCH (08:41)
[2018-08-27] MEDS: DOCUSATE SODIUM 100 MG CAP PO SCH (08:42)
[2018-08-27] MEDS: VALSARTAN 80 MG TAB PO SCH (08:42)
[2018-08-27] MEDS: hydroCHLOROthiazide 25 MG TAB PO SCH (08:42)
[2018-08-27] MEDS: HEPARIN SOD 5,000 UNIT/0.5 ML VIAL SQ SCH (08:44)
[2018-08-27] MEDS: INSULIN ASPART 100 UNITS/ML 3 ML PEN SC SCH ×2 (08:46→12:36)
--- NOTE | 2018-08-27 10:48 | Hospitalist Progress Note ---
Date of Service August 27, 2018 Assessment & Plan (1) Hypertension: - Rather resistant HTN at baseline but given renal mass it is possible she truly has a secondary HTN cause due to affects of renin-angiotension system; currently this is likely multifactorial between constipation/pain/anxiety/stress - She remains asymptomatic from her BP and will monitor; would not get too aggressive with blood pressure control in the acute setting - Can continue her home medications of Amlodipine 10 mg daily, HCTZ 12.5 mg daily, and Valsartan 160 mg daily (normally combined at home); Metoprolol 75 mg BID; Hydralazine PRN - Currently would not increase diuretic or ARB given recent renal procedure; average pulse is 60-70 so would avoid increasing BB therapy; Amlodipine is at max dose - Ultimately she should have routine F/U with her PCP to monitor her BP as she may not require the same level of medications going forwards if some of the resistance of her BP is coming from a secondary cause that is now removed - Did discuss with her to log her BPs at home to provide to her PCP for monitoring (2) Renal mass, right: - S/P right-sided nephrectomy with Dr. Larry Mei on 08/24. Concern for renal cell carcinoma. - Maintain good bowel regimen - did have Dulcolax and Colace; Could add Senna if this measure does not work and will monitor - Surgical and oncology follow up per primary team and Dr. Castrejon (3) Diabetes mellitus, type 2: - May resume home regimen. Did confirm she is taking Metformin and Janumet as well as glimepiride - defer further adjustments to PCP - Renal function is stable but may need adjustments in the future if any labs change (4) Hypothyroidism: - STABLE - Continue home Synthroid 112 mcg (5) DVT prophylaxis: - Heparin 5000 units BID per primary team No medical contraindication for discharge from medical team Subjective Reports feeling well today. Pain is much better controlled. She is moving her bowels and tolerating a diet. Her BP is elevated this morning prior to medications but remains asymptomatic. She does take her BP at home and recommended to routinely take this and log this so her family doctor could track this. She verbalizes no other complaints. Review of Systems Constitutional: no fever and no chills Eyes: no worsening vision Ear, Nose, Mouth, Throat: no sore throat and no dysphagia Respiratory: no cough and no dyspnea Cardiovascular: no chest pain and no palpitations Gastrointestinal: no constipation; no abdominal pain, no nausea, no vomiting and no diarrhea/loose stools Genitourinary (Female): no dysuria Musculoskeletal: no joint pain Integumentary: no rash Neurologic: no gait abnormality and no unsteadiness Physical Exam Vital Signs (Past 24 Hours): Last Vital Signs Temp 36.8 C 08/27/18 09:06 Pulse 78 08/27/18 09:06 Resp 16 08/27/18 09:06 BP 158/76 H 08/27/18 09:06 Pulse Ox 95 08/27/18 09:06 Constitutional: WD/WN, vitals as above Eyes: + anicteric sclerae ENMT: Ears: no hearing impairment Neck: normal visual inspection and trachea midline Respiratory: normal respiratory effort, lungs clear to auscultation no respiratory distress Cardiovascular: RRR, no murmur, no edema Gastrointestinal (Abdomen): Inspection/Auscultation: abdomen normal to inspection and normal bowel sounds; abdomen not distended Percussion/Palpation: abdomen soft; abdomen nontender Musculoskeletal: Head/Neck/Chest: normocephalic, head atraumatic and neck supple Extremities: no cyanosis and no clubbing Gait: normal gait Skin: no rashes, warm and dry Neurologic: moves all extremities and awake Psychiatric: Orientation: alert, oriented to person and cooperative
[2018-08-27 11:45] VITALS: BP 147/73; PULSE 66; TEMP 97.9; O2SAT 93
--- NOTE | 2018-08-27 13:07 | Pharmacy Report ---
Pharmacy Glycemic Short Note 2 - Date of Service August 27, 2018 - Glycemic Short BSG Results (Last 24 hours): 08/26/18 08/26/18 08/27/18 16:56 21:12 00:26 Glucose POC Glucose 133 H 134 H 127 H 08/27/18 08/27/18 08/27/18 06:30 08:12 11:56 Glucose 141 H POC Glucose 214 H 221 H ASSESSMENT: * Spoke with SCRIPT WRITER, they are agreeable to d/c'ing Janumet. Continue Glimepiride and Metformin. RN and pt both made aware. Pt to be d/c'd later today.
--- NOTE | 2018-09-02 14:17 | Coding Query ---
PATHOLOGY To promote full compliance with coding requirements relating to patient care, physician participation is requested in all cases of hat and cap drying room attendant uncertainty. Please assist us with the question(s) below: Please review the Pathology report and please document any relevant diagnosis(es) below: Diagnosis(es): Renal cell carcinoma Thank you Eliza TRAN
--- NOTE | 2018-09-04 08:18 | Discharge Summary ---
Date of Service September 04, 2018 Admission HPI Per Admitting Provider Patient with renal mass for nephrectomy. See H&P for further details. Spinal lesions noted - suspected metastasis, debulking nephrectomy planned. Admission Exam (Per Admitting) Constitutional WD/WN, vitals as above ENMT Ears: no external ear abnormality Neck trachea midline; no anterior neck swelling Respiratory no respiratory distress and does not use accessory muscles Cardiovascular Vessels: radial pulses present Gastrointestinal (Abdomen) Inspection/Auscultation: abdomen not distended Percussion/Palpation: abdomen soft; abdomen nontender Musculoskeletal Head/Neck/Chest: normocephalic and neck supple Skin normal turgor Neurologic CN's II-XI intact bilaterally and awake; not obtunded Psychiatric Orientation: oriented x 3 Lymphatic no lymphadenopathy Discharge Data Consultations 08/25/18 10:27 Consult Hospitalist Stat Procedures Performed Operation Date: 08/24/18 09:00 Actual Procedures p Laparoscopic Hand Assisted Right Nephrectomy(Right) - Larry Mei MD Hospital Course (1) Renal mass, right: Uneventful. Diet and activity advanced over admission. HTN noted. A/P 73 yo female POD#3 s/p R HALN. Doing well. DC instructions reviewed. Regular diet. Likely DC home this PM - patient amenable.
== END 2018-08-27 13:49 | disposition home or self-care (01) | DRG 657 ==
LOC: ASU 06:54 → 3N 11:50

== ENCOUNTER 2019-03-08 13:08 | Inpatient (IN) ==
--- NOTE | 2019-03-08 15:58 | History & Physical Report ---
Date of Service March 08, 2019 Assessment & Plan (1) Myocardial infarction: Given her risk factors of age, hypertension, diabetes, remote smokingand given a troponin level of 15, would have to assume that she is suffered an MD. Certainly getting the reference range for the [place]'s lab will be quite helpful, and if 15 is not nearly as elevated as it would be by our lab standards, then obviously the diagnosis will need to be revisited. Check echocardiogram. In the meantime she is asymptomatic, give aspirin, continue her home meds, discussed with cardiology who will be seeing the patient promptly. Nitro as needed recurrence of symptoms. Check echocardiogram. (2) Benign essential hypertension: Followshe notes she is recently been a little bit higher than she was before, and wonders if it relates to her new chemotherapy medication, which it might. However if it is helping with her cancer, it will likely be more beneficial to her to offset hypertension inducing effects of her chemotherapy med with an escalated antihypertensive regimen. If she did in fact have an MD, spike in blood pressure related to her chemotherapy may be the "straw that broke the camel's back" in terms of why now, even though it would be superimposed on coronary disease from hypertension diabetes hyperlipidemia and prior smoking (3) Type 2 diabetes mellitus: Hold metformin given the possibility of a heart cath, fingerstick supplemental insulin. Her A1c's have shown overall good control. (4) Metastatic renal cell carcinoma to bone: Continue her current treatment regimen (5) Primary hypothyroidism: Continue home meds (6) Normocytic anemia: CBC looked reasonable in the ER, outpatient follow-up (7) Hypercholesterolemia: Start atorvastatin 80 mg given the acute presentation (MD), check lipid panel in the morning (8) DVT prophylaxis: Lovenox (9) Discharge planning issues: Admit to telemetry under [facility], cardiology consult. History of Present Illness Chief Complaint: Chest pain Primary Care Provider: Joe Moreland MD Patient is a very pleasant 74-year-old female seen at her PCPs office earlier today. She went for follow-up of her chronic issues, but while she was waiting for her PCP to come into the room she suddenly had onset of left-sided very intense chest pain no shortness of breath. She describes it as sort of under her breast or rib, seeming to be may be an indigestion type of discomfort but definitely extremely intense. It lasted for a little while, she believes she was given something along the lines of Maalox and the pain resolved, nitroglycerin was ready to be dosed but she ended up not needing it as she was pain-free. He checked an EKG that was concerning for ischemic findings (not yet scanned into the system for review) and she was sent to the ER for further evaluation. There she was still pain-free, her troponin level was 15 (reference range not available) and they felt that she needed to be admitted for unstable angina. Given that her icer air conditioning is here she requested transfer, and we accepted her for admission and further evaluation. She notes that she is actually had maybe 3 or 4 prior episodes to this over the last few weeks, the most intense being in worship that lasted about 5 minutes where she actually had to leave the room and she felt like she was going to be sick. She denies any shortness of breath with these episodes, she does have fatigue and worsening exercise tolerance, but she relates that to her renal cell cancer/chemo/radiation therapy. Again currently she is pain-free. Denies any new edema or weight gain. Notes that she is eating reasonably well. She just was changed to her current cancer regimen about 6 weeks ago. Allergies Allergy/AdvReac Type Severity Reaction Status Date / Time No Known Drug Allergies Allergy Verified 03/08/19 08:47 Home Medications Home Medications Medication Instructions Recorded Confirmed Type blood sugar diagnostic strips #50 ea 11/17/18 03/08/19 Rx latanoprost 0.005 % eye drops 1 drp OPHTHALMIC (EYE) QPM #7.5 ml 11/24/1803/08 Rx metformin 1,000 mg tablet 1,000 mg PO BID #180 tab 11/24/18 03/08/19 Rx acetaminophen 325 mg capsule 650 mg PO Q6H PRN cap 12/23/18 03/08/19 History cholecalciferol (vitamin D3) 1,000 1,000 units PO DAILY 12/23/18 03/08/19 History unit capsule glimepiride 4 mg tablet 4 mg PO BID #180 tab 01/26/19 03/08/19 Rx metoprolol tartrate 50 mg tablet 75 mg PO BID #135 tab 01/26/19 03/08/19 Rx levothyroxine 112 mcg tablet 112 mcg PO UD tab 03/04/19 03/08/19 History amlodipine 10 mg-valsartan 160 1 tab PO QAM #90 tab 03/08/19 Rx mg-hydrochlorothiazide 12.5 mg tablet cabozantinib 60 mg tablet 60 mg PO DAILY #90 tab 03/08/19 03/08/19 Rx Past Med/Surg History Medical History Metastatic renal cell carcinoma (Acute) to T6 diagnosed on 09/08/18 Cancer (Chronic) RENAL (NEW DIAGNOSIS) WITH ?METS Diabetes mellitus, type 2 (Chronic) NIDDM Glaucoma (Chronic) Hypertension (Chronic) Hypothyroidism (Chronic) Surgical History H/O right nephrectomy (Resolved) 08/24/18 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 Daughter No problems noted. Daughter No problems noted. Social History Preferred Language: Syriac Communication Ability: Effective Visual Impairment: No Limitations Hearing Ability: Normal Retail Sales Lead Required: No Beliefs That Will Affect Care: None marital status: marital status details: Current Living Situation: Alone current occupational status: retired current occupation: Banking/sales Other Information That Helps Us Care for You: No Feels Safe at Home: Yes Safety Concerns: Feels Safe At This Time Smoking Status: Never smoker Cigarettes Per Day: QUIT 30 YEARS AGO; HX <1/4 PPD X 15 YEARS ; Second Hand Exposure: No ; Hx Alcohol Use: Yes Alcohol type: beer, wine and hard liquor Hx Substance Use: No caffeine: Yes (2 cups/day) during the past year weight has: decreased > 10 lbs Review of Systems Review of Systems: All systems reviewed & are unremarkable except as noted in HPI & below Physical Exam Physical Exam: Generalawake alert and oriented pleasant no distress HEENTnormocephalic atraumatic mucous membranes are moist Cardio regular without rubs murmurs gallops Lungs clear to auscultation bilaterally no rales rhonchi or wheezes good effort Abdomen soft nondistended nontender no masses organomegaly Extremities no cyanosis clubbing or edema no calf tenderness Skin no rashes no pallor or icterus Neuro cranial nerves II through XII grossly intact gross motor and sensory intact no focal deficits Mental status good recent and remote recall normal mood and affect good judgment insight Musculoskeletal shows nondescript upper paraspinal asymmetry and palpable tenderness on her chest wallbut completely different than what she was feeling earlier Results & Data Laboratory Results Labs from [place]: CBC with white count 6.46, hemoglobin 12.0, platelets 166 BNP 37 Troponin 15 (reference range not reported) Lipase 60 Basic metabolic panel with sodium 138, potassium 3.7, chloride 99, CO2 25, BUN 19, creatinine 0.8, calcium 9.2, glucose 166 Albumin 3.7, AST 54, ALT 65, alk phos 99, total protein 6.9 Chest x-ray with no active disease (report sent, films not available for review) PG Care Time/CCT Total # of Minutes Spent Total Time Spent with Patient: Total time spent is greater than 50% in coordination of care (as documented) at patient's floor/unit and/or counseling patient:
[2019-03-08] MEDS ORDERED: NITROGLYCERIN SL 0.4 MG/TAB TAB SL PRN (16:09)
[2019-03-08] MEDS ORDERED: ACETAMINOPHEN 325 MG TAB PO PRN (16:09)
[2019-03-08] MEDS ORDERED: ALUMINUM/MAGNESIUM SUSP 30 ML UDC PO PRN (16:09)
[2019-03-08] MEDS ORDERED: MAGNESIUM HYDROXIDE SUSP 30 ML UDC PO PRN (16:09)
[2019-03-08] MEDS ORDERED: POLYETHYLENE (MIRALAX) 17 GM PACK PO PRN (16:09)
[2019-03-08] MEDS ORDERED: MoRPHine SULFATE 2 MG/ML CARP IV PRN (16:09)
[2019-03-08] MEDS ORDERED: CLOPIDOGREL BISULFATE 75 MG TAB PO ONE (16:09)
[2019-03-08] MEDS ORDERED: ONDANSETRON INJ 2 MG/ML 2 ML VIAL IV PRN (16:09)
[2019-03-08] MEDS ORDERED: PATIENT'S HEIGHT AND/OR WEIGHT NEEDED SCH (16:30)
[2019-03-08] MEDS: ATORVASTATIN 40 MG TAB PO SCH (17:34)
[2019-03-08] MEDS ORDERED: ENOXAPARIN INJ 40 MG/0.4 ML SYR SQ SCH (18:00)
[2019-03-08] MEDS ORDERED: GLUCAGON FOR INJ 1 MG VIAL SQ PRN (20:43)
[2019-03-08] MEDS ORDERED: CARBOHYDRATES FOR HYPOGLYCEMIA PO PRN (20:43)
[2019-03-08] MEDS ORDERED: GLUCOSE 40% GEL 15 GM TUBE PO PRN (20:43)
[2019-03-08] MEDS ORDERED: DC ALL PREVIOUSLY ORDERED DIABETES MEDS ONE (20:43)
[2019-03-08] MEDS ORDERED: DEXTROSE 50% 50 ML SYRINGE IV PRN (20:43)
[2019-03-08] MEDS ORDERED: GLUCOSE 10 TABS/TUBE PO PRN (20:43)
[2019-03-08] MEDS: METOPROLOL TARTRATE 50 MG TAB PO SCH (20:59)
[2019-03-08] MEDS ORDERED: LATANOPROST 0.005% OP SOLN 2.5 ML BTL OP SCH (21:00)
[2019-03-08] MEDS ORDERED: GLIMEPIRIDE 2 MG TAB PO SCH (21:00)
[2019-03-08] MEDS: INSULIN ASPART 100 UNITS/ML 3 ML PEN SC SCH (21:53)
[2019-03-09 05:40] LABS: Estimated Average Glucose 189 mg/dl; Hemoglobin A1C 8.2 % (4.5-5.6)
[2019-03-09] MEDS ORDERED: LEVOTHYROXINE SODIUM 112 MCG TABLET PO SCH (06:30)
[2019-03-09 06:46] LABS: Chol HDL Ratio 8; Cholesterol 238 mg/dl (0-200); HDL Cholesterol 31 mg/dl; Triglycerides 485 mg/dl (0-150)
[2019-03-09] MEDS: INSULIN ASPART 100 UNITS/ML 3 ML PEN SC SCH ×2 (07:51→12:15)
[2019-03-09] MEDS: METOPROLOL TARTRATE 50 MG TAB PO SCH (07:52)
[2019-03-09] MEDS: ATORVASTATIN 40 MG TAB PO SCH (07:53)
[2019-03-09] MEDS ORDERED: GLIMEPIRIDE 2 MG TAB PO SCH (08:00)
[2019-03-09] MEDS ORDERED: VALSARTAN 80 MG TAB PO SCH (09:00)
[2019-03-09] MEDS ORDERED: hydroCHLOROthiazide 25 MG TAB PO SCH (09:00)
[2019-03-09] MEDS ORDERED: CHOLECALCIFEROL 1,000 UNITS TAB PO SCH (09:00)
[2019-03-09] MEDS ORDERED: AMLODIPINE BESYLATE 5 MG TAB PO SCH (09:00)
[2019-03-09] MEDS ORDERED: ASPIRIN 81 MG ECTAB PO SCH (09:00)
--- NOTE | 2019-03-09 10:20 | Cardiology Consultation ---
Date of Consultation March 09, 2019 Assessment & Plan (1) Chest pain syndrome: The patient's description of chest discomfort is atypical for classic angina pectoris. Sounds as if it may be gastrointestinal in origin. Fortunately, both troponin I levels at our institution are undetectable. No further cardiac testing indicated at this time. (2) Benign essential hypertension: Borderline control on current medical regimen. (3) Hypercholesterolemia: Continue atorvastatin. (4) LVH (left ventricular hypertrophy): Mild left ventricular hypertrophy with evidence of diastolic function on current echocardiogram. History of Present Illness Attending Physician: Tone Vega DO History of Present Illness Mrs. Becerra is a 74-year-old female transferred from [facility]'s emergency room yesterday because of a chest pain syndrome and an elevated, high sensitivity troponin level. This consultation was ordered to assist in her management. Of note, the patient typically follows with Dr. Conde in the outpatient setting. The patient's her usual state of health until approximately 2 weeks ago. She explains in over that timeframe, she had 3 or 4 episodes of a left-sided chest discomfort which she describes as indigestion and under her left ribcage. There were no other associated symptoms such as shortness of breath, nausea, vomiting, diaphoresis, or radiation of the discomfort. The episodes typically lasted up to 5 minutes and often occurred after drinking coffee. Yesterday, the patient was in Dr. Moreland's office for routine visit. She had another episode of left-sided chest discomfort as described above. She was given a dose of Maalox and her symptoms resolved. An EKG apparently had some ST segment changes and the patient was transferred to the emergency room for further evaluation. As above, a high sensitivity troponin was found to be 15 with the upper limits of normal being 14. The patient was then transferred to our institution for further care. There has been no recurrence of her discomfort since her transfer to [facility]. Although the patient does not follow a routine exercise program, she is active on a daily basis caring for her home. She can climb 2 flight of stairs without difficulty. She has never experienced exertional angina pectoris or limiting dyspnea. She further denies syncope, presyncope, PND, orthopnea, palpitations, lower extremity edema, and claudication. The patient was diagnosed with metastatic renal cell carcinoma back in August of this year. She underwent a right nephrectomy and is currently undergoing chemotherapy. She has had radiation to a met in the T6 vertebral body. She did have a normal stress echocardiogram performed in May 2017. She exercised to a 7 MET level and a peak heart rate of 93% of the maximum predicted heart rate. Baseline echocardiogram noted normal left ventricular systolic function, mild LVH, and evidence of diastolic dysfunction. Currently the patient is resting comfortably in bed without complaints. We have had a long discussion regarding the various assays to measure troponin. Both troponin I levels drawn here have been undetectable. Past medical and surgical history 1. Hypertension 2. Hypercholesterolemia 3. LVH 4. Diastolic dysfunction 5. Diabetes mellitus 6. Metastatic renal cell carcinoma-August 2018 7. Metastatic lesion, T6 8. Hypothyroidism 9. Glaucoma 10. Right nephrectomy-August 2018 11. Status post ORIF of both ankles. Social history , lives alone Quit tobacco use 30 years ago Social alcohol Family history Mother at 86 from an [place] Father at 56 from an [place] Review of systems A 10 point review of systems was undertaken and negative except for that described above. Allergies Allergy/AdvReac Type Severity Reaction Status Date / Time No Known Drug Allergies Allergy Verified 03/08/19 08:47 Home Medications Home Medications Medication Instructions Recorded Confirmed Type blood sugar diagnostic strips #50 ea 11/17/18 03/08/19 Rx latanoprost 0.005 % eye drops 1 drp OPHTHALMIC (EYE) QPM #7.5 ml 11/24/18 03/08/19 Rx metformin 1,000 mg tablet 1,000 mg PO BID #180 tab 11/24/18 03/08/19 Rx acetaminophen 325 mg capsule 650 mg PO Q6H PRN cap 12/23/18 03/08/19 History cholecalciferol (vitamin D3) 1,000 1,000 units PO DAILY 12/23/18 03/08/19 History unit capsule glimepiride 4 mg tablet 4 mg PO BID #180 tab 01/26/19 03/08/19 Rx metoprolol tartrate 50 mg tablet 75 mg PO BID #135 tab 01/26/19 03/08/19 Rx levothyroxine 112 mcg tablet 112 mcg PO UD tab 03/04/19 03/08/19 History amlodipine 10 mg-valsartan 160 1 tab PO QAM #90 tab 03/08/19 Rx mg-hydrochlorothiazide 12.5 mg tablet cabozantinib 60 mg tablet 60 mg PO DAILY #90 tab 03/08/19 03/08/19 Rx Patient History Medical History Metastatic renal cell carcinoma (Acute) to T6 diagnosed on 09/08/18 Cancer (Chronic) RENAL (NEW DIAGNOSIS) WITH ?METS Diabetes mellitus, type 2 (Chronic) NIDDM Glaucoma (Chronic) Hypertension (Chronic) Hypothyroidism (Chronic) Surgical History H/O right nephrectomy (Resolved) 08/24/18 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 Daughter No problems noted. Daughter No problems noted. Social History Preferred Language: Colombian Communication Ability: Effective Visual Impairment: No Limitations Hearing Ability: Normal Rotoprinter Required: No Beliefs That Will Affect Care: None marital status: marital status details: Current Living Situation: Alone current occupational status: retired current occupation: Banking/sales Feels Safe at Home: Yes Smoking Status: Never smoker Cigarettes Per Day: QUIT 30 YEARS AGO; HX <1/4 PPD X 15 YEARS ; Second Hand Exposure: No ; Hx Alcohol Use: Yes Alcohol type: beer, wine and hard liquor Hx Substance Use: No caffeine: Yes (2 cups/day) during the past year weight has: decreased > 10 lbs Physical Exam Physical Exam: In general this is a well-developed well-nourished white female in no acute distress. HEENT exam is negative. Neck is supple with full carotid upstrokes. There are no carotid bruits. Jugular venous pressure is flat at 90. There is no thyromegaly. Cardiovascular exam reveals a regular rhythm with a normal S1 and S2. No S3, S4, or murmurs are noted. Lungs are clear without rales, rhonchi, or wheezes. Abdomen is soft and nontender without bruits. Extremities reveal intact radial artery and posterior tibial pulses bilaterally. There is no peripheral edema. Results & Data Vital Signs (Past 12 Hours) Vital Signs Temp Pulse Pulse Resp BP BP Pulse Ox 03/09/19 08:00 71 03/09/19 07:36 37.0 C 67 18 154/89 H 95 03/09/19 03:05 36.6 C 64 19 165/88 H 97 03/09/19 00:00 74 03/08/19 23:39 36.7 C 68 20 150/90 H 96 03/08/19 22:28 36.3 C L 71 16 171/115 H 167/103 H 96 Laboratory Results CBC notes a hemoglobin of 12.6, crit 30.5, white count 5.36, platelet [id number]. Electrolytes notice a sodium of 136, potassium 3.3, chloride 101, bicarb 25, BUN 16, creatinine 1.08, glucose of 171. Troponin I level is undetectable less than 0.015 x 2. BNP is normal at 37. Diagnostic Findings EKG notes normal sinus rhythm and an old inferior myocardial infarction cannot be excluded. Chest x-ray shows no acute disease. quality assurance monitor body is benign. PG Care Time/CCT Total # of Minutes Spent Total Time Spent with Patient: Total time spent is greater than 50% in coordination of care (as documented) at patient's floor/unit and/or counseling patient:
--- NOTE | 2019-03-09 18:42 | Discharge Summary ---
Date of Service March 09, 2019 Admission HPI Per Admitting Provider Patient is a very pleasant 74-year-old female seen at her PCPs office earlier today. She went for follow-up of her chronic issues, but while she was waiting for her PCP to come into the room she suddenly had onset of left-sided very intense chest pain no shortness of breath. She describes it as sort of under her breast or rib, seeming to be may be an indigestion type of discomfort but definitely extremely intense. It lasted for a little while, she believes she was given something along the lines of Maalox and the pain resolved, nitroglycerin was ready to be dosed but she ended up not needing it as she was p ain-free. He checked an EKG that was concerning for ischemic findings (not yet scanned into the system for review) and she was sent to the ER for further evaluation. There she was still pain-free, her troponin level was 15 (reference range not available) and they felt that she needed to be admitted for unstable angina. Given that her director women is here she requested transfer, and we accepted her for admission and further evaluation. She notes that she is actually had maybe 3 or 4 prior episodes to this over the last few weeks, the most intense being in muslim that lasted about 5 minutes where she actually had to leave the room and she felt like she was going to be sick. She denies any shortness of breath with these episodes, she does have fatigue and worsening exercise tolerance, but she relates that to her renal cell cancer/chemo/radiation therapy. Again currently she is pain-free. Denies any new edema or weight gain. Notes that she is eating reasonably well. She just was changed to her current cancer regimen about 6 weeks ago. Principal Diagnosis Gastrointestinal chest pain Uncontrolled hypertension Uncontrolled hyperlipidemia Uncontrolled diabetes Discharge Exam General she is awake and alert pleasant no distress. HEENT normocephalic atraumatic mucous membranes moist. Breathing unlabored no accessory muscle use good effort. Skin shows no rashes no pallor or icterus. Mental status is good recent and remote recall normal mood and affect good judgment and insight. No focal neuro deficits. Discharge Data Allergies Allergy/AdvReac Type Severity Reaction Status Date / Time No Known Drug Allergies Allergy Verified 03/08/19 08:47 Consultations 03/08/19 16:09 Consult Cardiology Routine Consult Case Management - Discharge Planning Routine Hospital Course (1) Myocardial infarction: Sent over from [facility] with what appeared to be a markedly elevated troponin. After discussion with cardiology, the reference range is dramatically different and her troponin level was essentially "not negative" rather than a true positive. Given this, as well as the fact that her troponin levels here were completely normal and echocardiogram did not show wall motion abnormalities, clearly she did not have an MD. Her symptoms appear most likely to have been gastrointestinal. Should she show anything that seems more cardiovascular than stress testing may be in order, but given the overall situation it does not appear indicated at this time. Also given all of this I did not discharge her on an antiplatelet agent given that the data for primary prevention are more nebulous, but I will defer to her primary care physician's judgment in this regard. (2) Benign essential hypertension: Running uncontrolled, but given that she did not have an MD, she appears to actually be asymptomatic uncontrolled. She and her family have noted repeatedly that she does have pretty significant whitecoat hypertension, and given that she is asymptomatic, we discussed that it would be more accurate to have her follow her blood pressure 2-4 times a day at home various times of day in various circumstances, and then call her PCP with further readings. She is going to work on cutting back on simple carbohydrates as it relates to her diabetes, and hopefully this will help also improve her overall metabolic syndrome metabolism as it relates to her blood pressure. If she is running truly uncontrolled as the week progresses, we did discuss that her PCP will likely need to start additional medications even in just a few days, but if she is still asymptomatic and is more in a stage III range, and showing improvement with lifestyle change, then further medications may be able to be cautiously held off with watchful waiting. (3) Type 2 diabetes mellitus: A1c significantly elevatedwe discussed extensively the risks and benefits of lifestyle change. After her nephrectomy she noted that urology told her to eat low in protein, and because of that she has migrated more to simple carbohydrates. We discussed that while that would be reasonable looking her as a patient with one kidney, her creatinine/GFR is quite reassuringly normal, and looking at her as a whole person, including not only her solitary kidney, but also her diabetes/hypertension/hyperlipidemia and vascular risk, as well as her active cancer, that it probably would be more favorable for her as a whole person to shift towards more of a Mediterranean kind of a diet, minimizing the simple carbohydrates and eating more in terms of fruits, vegetables, and lean proteins. (4) Metastatic renal cell carcinoma to bone: Continue her current treatment regimenit may be causing indigestion as well as a degree of metabolic disarray, but we discussed if it turns out to be helping with the cancer then treating for side effects of the medicine would be worth it for her overall long-term well-being. (5) Primary hypothyroidism: Continue home meds (6) Normocytic anemia: CBC looked reasonable in the ER, outpatient follow-up (7) Hypercholesterolemia: Non-HDL cholesterol about 207, cholesterol is overall markedly elevated, high risk for vascular disease given her diabetes. She notes having been on Crestor before, but I am not sure if she is actually taking it given that is not on her med list. Discharged with Crestor 40 mg for both lipid suppression and plaque stabilization effect. Discussed risks/benefits/follow-up (8) DVT prophylaxis: Lovenox utilized during her stay (9) Discharge planning issues: Stable for home, close PCP follow-up. Total Time Total Time Spent Total Time Spent (In Minutes): Greater than 30 Discharge Plan Discharge Items Patient Disposition: Home - Self-Care Reason For Visit: UNCONTROLLED HTN, ELEVATED TROPONIN Discharge Diagnosis: chest pain likely indigestion related Activity: Resume your previous activity Non-emergency contact: Primary Care Provider and Manual Writer Call non-emergency contact if: you have any medication questions and your symptoms worsen Follow-up/Referrals: Joe Moreland MD [Primary Care Provider] - 03/12/19 11:30 am (Please, follow up with Dr. Moreland on FridayMarch 12 at 11:30 am. *If you need to change this appointment, call the office at [phone].) Diet: Carb Consistent or DM2 Addtl Attending Provider Instructions: Chest pain -Fortunately after further review, your chest pain was not cardiac. The troponin levels at [facility] have a dramatically different reference range than any other hospital we have worked with, and your numbers were not really positive there as much is "not negative"further, your troponin levels on 2 separate checks here were undetectably low. When someone has a heart attack, troponin levels will rise and stay elevated often for a week. This, combined with your echocardiogram looking okay, strongly suggests that you were not having a heart attack. Your symptoms fit equally well with bad indigestion, and certainly we see an awful lot of bad indigestion mimic cardiac pain. While cleaning up your diet hopefully will help, I do also wonder how much your chemo medication may be contributing. -For now, we will work on treating the indigestion by cleaning up your diet, although if your symptoms continue, Dr. Moreland can treat for indigestion if need to be High cholesterol -Your cholesterol numbers are absolutely" artery clogging" range with a total of 238, and a good (HDL) of 31. (Because your total cholesterol and triglycerides were so high, the lab was unable to determine your LDL (bad)). Looking at "where your numbers should be" as a 74-year-old with diabetes and high blood pressure, we would want your "non-HDL" (the number you get when you subtract your good away from your total) to be less than 100. Because of this we will need to treat with Crestor at 40 mg, to get your numbers in line. Further medications like Crestor and Lipitor, as we discussed, stabilize the plaque that is already in arteries going a long way to prevent the plaque rupture that usually leads to heart attacks and strokes. -As we discussed, it is a fairly low risk to get muscle aches on a medication like Crestor. If you were to get them, it would not be an accentuation of aches that you already feel, but rather a distinct syndrome of "feeling like you have the flu without actually having the flu" or separately a sudden onset of really annoying leg cramps. Both of these are quite unlikely, but both, if they h appen, generally resolve within a few weeks of stopping the medication. -Dr. Moreland will also follow how you are doing on this both symptomatically and with lab work Diabetes -Your sugar numbers are quite elevated, with your A1c being high at 8.2. Because triglycerides run [id number] with sugar control, this is also why your triglyceride numbers are so high. Certainly your oral chemo medication may be part of the culprit, but rather than throwing more medication at you, working to clean up your diet from bad (simple/starchy/sugary) carbohydrates should be as effective, or more effective, then additional medications at getting your sugars in line. -Generally speaking foods that will spike a high sugar will be any sort of simple/starchy/sugary carbsthink in terms of anything that is made with bread, crust, flour, potatoes, sugar. Sugary drinks are also certainly a culprit. -Rather than spending a ton of time trying to learn nutrition, and easier trick will be to check your sugar 1 to 2 hours after you eat, and learn from the results. In general foods that are good for you as it relates to your diabetic metabolism will result in a sugar less than about 150 in that 2-hour after you eat window. Foods that are too loaded with Starcher sugar will cause progressively higher sugars. -Remember, too, the main reason that we are concerned about this is that uncontrolled diabetes and unhealthy eating can cause you harm in a lot of different waysfrom a vascular disease standpoint, high sugars will clog arteries leading to heart attacks and strokes. From a cancer standpoint, there is reasonable studies to suggest that eating more of a plant-based diet (and avoiding simple starches and sugars) will allow people to live longer and do better. Hypertension -Given that you have "white coat hypertension" it is very difficult to determine what your sugar readings are in this context. -It is actually been well studied that the most accurate way to gauge somebody's blood pressure is to get a wide array of readings in their home setting. -We would like to have you check your blood pressure 2-4 times a day, randomly, at home. Check when you first get up in the morning, check after you take your medicines, check in the evening, check in the afternoon, check when you feel good, check when you feel bad, check when you are calm, and check when you are upset. Doing all of this will give you and Dr. Moreland a good idea of what your "law of averages" is. -From there, he will be able to guide you on whether or not more medication as needed. -Generally speaking, asymptomatic but "uncontrolled" hypertension will need to be acted on more quicklythis would be if your systolic numbers are above 180, or your diastolic numbers are above 110, more often than not. If this is the case, he will be likely adding medication by or Friday. -If you are more in "stage III" ranges (systolics of 160-180, diastolics 100- 110) then as long as you are still asymptomatic, Dr. Moreland can have you continue to watch her numbers over the next 2 to 4 weeks and see how much improving your diet also improves her blood pressure control. If it seems like things are trending in the right direction as you get away from simple/starchy/sugary carbs, then you can both continue to "watch and wait" using lifestyle changes the means to treat the blood pressure. If your pressures are not improving in spite of lifestyle change, then he will need to add more medications. -As we discussed, hypertensive crises are fortunately a rarity, and generally, with bad headache/blurred vision/confusion, a strokelike presentation of numbness and weakness of one part of the body, and angina presentation of chest pain and shortness of breath, or a congestive heart failure presentation of fluid backing up in the lungs. Since you are showing as none of these, fortunately you are showing us asymptomatic high blood pressure. Renal cancer -Given that newer treatments for renal cancer can be quite successful, even though the new chemo med may be causing his some problems (indigestion, higher blood pressures, possibly even contributing to the metabolic disarray of your sugar and cholesterol numbers) it is right now worthwhile to continue the chemo medication, and treat the "fall out" from it rather than stop the medication. Pending Studies at Discharge: No Stand-Alone Forms: My [facility] Medications and DC Order Prescriptions: New rosuvastatin [Crestor] 40 mg tablet 40 mg PO DAILY Qty: 30 RF: 0 Continued acetaminophen [Tylenol] 325 mg capsule 650 mg PO Q6H PRNRF: 0 cholecalciferol (vitamin D3) 1,000 unit capsule 1,000 units PO DAILY RF: 0 Contour Test Strips strip .ROUTE .MEDSUPPLY Qty: 50 RF: 5 glimepiride 4 mg tablet 4 mg PO BID Qty: 180 RF: 3 metoprolol tartrate 50 mg tablet 75 mg PO BID Qty: 135 RF: 3 ujkqcrzrde-zbbkltqpp-dpqwxzagi 10-160-12.5 mg tablet 1 tab PO QAM Qty: 90 RF: 3 latanoprost 0.005 % drops 1 drp OPHTHALMIC (EYE) QPM Qty: 7.5 RF: 3 metformin 1,000 mg tablet 1,000 mg PO BID Qty: 180 RF: 3 levothyroxine 112 mcg tablet 112 mcg PO UD RF: 0 Cabometyx 60 mg tablet 60 mg PO DAILY Qty: 90 RF: 3 Discharge Orders: Discharge Order (Routine); Ordered 03/09/19 Ordered By: Tone Genao/Other Patient Handouts: Rosuvastatin Calcium Oral tablet, Hypertension Control, Beta Mayra, High Blood Pressure Stroke Link, Pressure High Blood, Hypertension Dc Admission Data Admit Date/Time: 03/08/19 14:36 Attending Provider: Tone Vega Admit Provider: Tone Vega Primary Care Provider: Jeo Moreland Other Providers: Yves Conde Other Interventions: Discharge Summary Assessment (RN) Last Done: 03/09/19 12:45 DC Date/Time DO NOT enter until pt leaves facility: 03/09/19 13:45
[2019-03-14] MEDS ORDERED: LEVOTHYROXINE SODIUM 112 MCG TABLET PO SCH (06:30)
== END 2019-03-09 13:45 | disposition home or self-care (01) | DRG 392 ==
LOC: 1E 14:36 → 2S 22:05